=== PATIENT | male | born 1995 | race American Indian/Alaskan Native ===

== ENCOUNTER 2017-04-25 12:57 | Emergency (ER) | payer MEDICAID ==
[2017-04-25] MEDS ORDERED: NACL 0.9% 1000 ML 2,000 ML IV ONE (13:50)
[2017-04-25 14:05] LABS: Alanine Aminotransferase 24 units/L (7-56); Albumin 4.6 g/dL (3.9-5); BUN/Creatinine Ratio 4; Basophils % (Auto) 0.2 % (0.0-1.8); Blood Urea Nitrogen 4 mg/dL (9-20); Calcium 9.6 mg/dL (8.4-10.2); Eosinophils # (Auto) 0.1 K/mm3 (0.0-0.4); Eosinophils % (Auto) 1.1 % (0.0-4.3); Hematocrit 49.2 % (35.5-45.6); Hemoglobin 15.8 gm/dl (11.8-15.2); Hemolysis Index 35; Lymphocytes # (Auto) 1.3 K/mm3 (1.2-5.4); Lymphocytes % (Auto) 10.7 % (13.4-35.0); Mean Corpuscular HGB Conc 32 % (32-34); Mean Corpuscular Hemoglobin 29 pg (28-32); Mean Corpuscular Volume 91 fl (84-94); Monocytes # (Auto) 1.7 K/mm3 (0.0-0.8); Monocytes % (Auto) 13.5 % (0.0-7.3); Platelet Count 259 K/mm3 (140-440); Red Blood Count 5.38 M/mm3 (3.65-5.03); Red Cell Distribution Width 15.3 % (13.2-15.2)
--- NOTE | 2017-04-25 14:29 | Cat Scan Report ---
CT FACIAL BONES WITHOUT CONTRAST: HISTORY: Facial trauma. TECHNIQUE: Helical CT images with sagittal and coronal CT reformations. FINDINGS: All paranasal sinuses are clear. No sinus wall fracture, fluid level or opacification. The orbital cavities are symmetric and intact. The mandible is intact. The skull base and upper cervical spine demonstrate no evidence for acute injury. IMPRESSION: Unremarkable CT of the facial bones.
--- NOTE | 2017-04-25 14:29 | Cat Scan Report ---
CT HEAD WITHOUT CONTRAST: HISTORY: Headache. TECHNIQUE: Sequential 2.5mm CT images. COMPARISON: none. FINDINGS: Cerebral Parenchyma: Within normal limits. Cerebellum: Within normal limits. Brainstem: Within normal limits. Ventricles: Normal. Sella: Normal. Extra-axial spaces: Normal. Basal Cisterns: Normal. Intracranial Hemorrhage: None. Midline Shift: None. Calvarium: Normal. Sinuses: Normal. Mastoid Air Cells: Normal. Visualized Orbits: Normal. IMPRESSION: Cranial CT scan within normal limits.
[2017-04-25] MEDS ORDERED: TYLENOL PO ONE (15:15)
--- NOTE | 2017-04-25 15:22 | Emergency Department Report ---
HPI - General Chief Complaint: Seizure Time Seen by Provider: 04/25/17 13:48 - HPI HPI: The patient is a 22-year-old male who presents for evaluation of headache and facial pain status post fall one day ago. He states that he is concerned that he experienced a first-time seizure one day ago, causing him to fall sustaining injuries to the head and face. He reports mild aching in quality frontal headache and nasal bridge pain since yesterday, exacerbated with movement and improved at rest. The patient denies fever, neck pain or neck stiffness, vision or hearing changes, smell or taste changes, paresthesias, facial drooping, slurred speech, seizure-like activity, urine or bowel incontinence or retention , or other focal neurological deficit. ED Past Medical Hx - Past Medical History Hx Psychiatric Treatment: Yes (SCHIZOAFFECTIVE DISORDER) - Surgical History Additional Surgical History: UNKNOWN - Social History Smoking Status: Unknown if ever smoked - Medications Home Medications: Home Medications Medication Instructions Recorded Confirmed Last Taken Type Acetaminophen [Tylenol] 1,000 mg PO Q6HR #20 tablet 04/25/17 Unknown Rx ED Review of Systems ROS: Stated complaint: POSS SEIZURE/SYNCOPE Other details as noted in HPI Constitutional: denies: fever ENT: denies: throat or neck pain Respiratory: denies: cough, shortness of breath Cardiovascular: denies: chest pain Endocrine: denies unexplained weight loss or gain Gastrointestinal: denies: abdominal pain, nausea Genitourinary: denies: dysuria Musculoskeletal: denies: leg swelling Skin: denies: rash Neurological: reports: headache Hematological/Lymphatic: denies: easy bleeding or easy bruising Psych: denies sadness or hopelessness Physical Exam - Physical Exam Vital Signs: Vital Signs 04/25/17 13:02 Temperature 99.8 F H Pulse Rate 109 H Respiratory 18 Rate Blood Pressure 114/92 O2 Sat by Pulse 98 Oximetry Physical Exam: General: well-nourished, well-developed, no acute distress Head: Normocephalic, small superficial abrasions presents to the bridge of the nose Eyes: normal sclera, PERRL, EOM intact ENT: Mucous membranes are pale and dry Neck: No neck stiffness, no cervical adenopathy Respiratory: Breath sounds equal bilaterally, no wheezing, rales, or rhonchi Cardio: S1 and S2 present, no murmurs, rubs, gallops, capillary refill is delayed Abdomen: Normoactive bowel sounds, soft abdomen, no rigidity, no guarding or rebound tenderness Musc: No pitting edema Skin: No rash Neuro: alert oriented x4, normal cognition, speech normal, no facial drooping, no uvula or tongue deviation on protrusion, no deficit with rotation of neck or shoulder shrug, no obvious gross motor deficit in the upper or lower extremities with flexion or extension at the shoulder, elbow, wrist, hip, knee, or ankle bilaterally, no obvious gross sensation deficit to crude touch or 2 pt discrimination, 2+ symmetric reflexes on DTR testing, no coordination deficit with elmjgm-sd-[id number] or dlss-ns-fcaj testing, romberg negative, patient able to to ambulate without abnormal gait Psych: Normal affect ED Course Vital Signs 04/25/17 13:02 Temperature 99.8 F H Pulse Rate 109 H Respiratory 18 Rate Blood Pressure 114/92 O2 Sat by Pulse 98 Oximetry ED Medical Decision Making - Lab Data Result diagrams: 04/25/17 13:27 04/25/17 13:27 - Medical Decision Making The patient was seen and examined by myself. The patient is placed on a quality assurance monitor body and continuous pulse ox. On initial evaluation, the patient was found to be in no distress. Evaluation orders were placed. The patient is given 2 L normal saline fluid bolus for treatment of his dehydration. Lab results are grossly unremarkable. CT scan of the facial bones is negative for significant facial bone fractures. CT scan the head is negative for acute intracranial disease process. The patient was reevaluated and reported that his pain was markedly improved. The patient is stable for discharge with outpatient follow-up. The patient is given follow-up and return instructions. The patient expressed understanding and agreed with the plan. The patient is discharged in stable condition. Critical care attestation.: If time is entered above; I have spent that time in minutes in the direct care of this critically ill patient, excluding procedure time. ED Disposition Clinical Impression: Dehydration, Acute post-traumatic headache, not intractable Nose abrasion Qualifiers: Encounter type: initial encounter Qualified Code(s): S00.31XA - Abrasion of nose, initial encounter Disposition: -01 TO HOME OR SELFCARE Is pt being admited?: No Does the pt Need Aspirin: No Condition: Stable Instructions: Dehydration (ED), Acute Headache (ED), Abrasion (ED) Prescriptions: Acetaminophen [Tylenol] 1,000 mg PO Q6HR #20 tablet Referrals: PRIMARY CARE, [Primary Care Provider] - 3-5 Days Time of Disposition: 15:20
[2017-04-25] MEDS ORDERED: NACL 0.9% 1000 ML 1,000 ML IV ONE ×2 (17:01→18:14)
[2017-04-25] MEDS ORDERED: ATIVAN IV ONE (18:15)
[2017-04-25] MEDS ORDERED: NORMODYNE IV ONE (18:16)
[2017-04-25 20:01] VITALS: BP 136/84
== END 2017-04-25 23:48 | disposition home or self-care (01) ==
LOC: ED 12:57
DX: S00.31XA Abrasion of nose, initial encounter (principal); G44.319 Acute post-traumatic headache, not intractable; E86.0 Dehydration; F20.9 Schizophrenia, unspecified; W17.89XA Other fall from one level to another, initial encounter; Y93.89 Activity, other specified; Y92.89 Other specified places as the place of occurrence of the external cause; Y99.8 Other external cause status
CPT/HCPCS: 36415; 70450; 70486; 80053; 84443; 85025; 96361; 96374; 99285; G0480; J2060; J7030; 80320

== ENCOUNTER 2018-11-28 22:02 | Emergency (ER) | payer MEDICAID ==
[2018-11-28 23:48] LABS: Color,Urine Yellow (Yellow)
[2018-11-28 23:49] LABS: Bilirubin,Urine NEG (Negative); Blood,Urine NEG (Negative); Mucus,Urine FEW /HPF; Protein,Urine <15 mg/dL mg/dL (Negative); Urobilinogen,Urine < 2.0 mg/dL (<2.0)
[2018-11-28 23:56] LABS: Amphetamine Screen,Urine PRESUMPTIVE NEGATIVE; Benzodiazepines Screen,Urine PRESUMPTIVE NEGATIVE; Cannabinoid Screen,Urine PRESUMPTIVE NEGATIVE; Cocaine Screen,Urine PRESUMPTIVE NEGATIVE; Methadone Screen,Urine PRESUMPTIVE NEGATIVE; Opiate Screen,Urine PRESUMPTIVE NEGATIVE
[2018-11-28 23:57] LABS: Basophils % (Auto) 0.2 % (0.0-1.8); Eosinophils # (Auto) 0.2 K/mm3 (0.0-0.4); Eosinophils % (Auto) 1.7 % (0.0-4.3); Hematocrit 44.9 % (35.5-45.6); Hemoglobin 14.2 gm/dl (11.8-15.2); Lymphocytes # (Auto) 1.9 K/mm3 (1.2-5.4); Mean Corpuscular HGB Conc 32 % (32-34); Mean Corpuscular Volume 92 fl (84-94); Monocytes # (Auto) 0.8 K/mm3 (0.0-0.8); Monocytes % (Auto) 7.2 % (0.0-7.3); Platelet Count 255 K/mm3 (140-440); Red Cell Distribution Width 15.9 % (13.2-15.2)
[2018-11-29 00:16] LABS: BUN/Creatinine Ratio 7; Blood Urea Nitrogen 8 mg/dL (9-20); Calcium 9.7 mg/dL (8.4-10.2); Hemolysis Index 12
--- NOTE | 2018-11-29 09:50 | Emergency Department Report ---
HPI - General Chief Complaint: Psych Time Seen by Provider: 11/29/18 09:20 - HPI HPI: 23-year-old male presents to the emergency department for a mental health evaluation. The patient says that he has been hearing voices for "a while" and is hoping to have his medications adjusted. He denies receiving any commands from these hallucinations. He denies any suicidal or homicidal ideations. The patient says that he got here via police but says he is unsure who called for the police and says that they were "already outside." I spoke to his mother, Leonarda Swenson, who says that the patient has been having multiple recent episodes or exacerbations of his schizoaffective disorder. She says that he is mentioned some suicidal ideations a few different times in the past 24 hours. She also says that he had some type of a verbal altercation with another customer at the [employer] yesterday. He is compliant with his medications. However the medications have been changed multiple times over the past few months. He was previously on Invega but this was stopped 2 months ago and he was placed on Arixtra, but this was then stopped about one month ago. He follows with Dr. Arnoldo Spring at [facility] ED Past Medical Hx - Past Medical History Previous Medical History?: Yes Hx Psychiatric Treatment: Yes (SCHIZOAFFECTIVE DISORDER) - Surgical History Past Surgical History?: Yes Additional Surgical History: UNKNOWN - Social History Smoking Status: Current Every Day Smoker Substance Use Type: None - Medications Home Medications: Home Medications Medication Instructions Recorded Confirmed Last Taken Type Benztropine Mesylate 1 mg PO BID 11/29/18 11/29/18 11/28/18 History Guanfacine HCl [Guanfacine HCl ER] 2 mg PO DAILY 11/29/18 11/29/18 11/28/18 History [place] Carbonate ER [Lithobid ER] 450 mg PO BID 11/29/18 11/29/18 11/28/18 History Trazodone HCl 150 mg PO QHS 11/29/18 11/29/18 11/28/18 History clonazePAM [Klonopin] 1 mg PO BID 11/29/18 11/29/18 11/28/18 History fluPHENAZine HCl [Prolixin] 5 mg PO DAILY 11/29/18 11/29/1819 History at noon fluPHENAZine HCl [fluPHENAZine] 10 mg PO BID 11/29/18 11/29/18 11/28/18 History AM&QHS ED Review of Systems ROS: Stated complaint: HEARING VOICES Other details as noted in HPI Comment: All other systems reviewed and negative Constitutional: denies: chills, fever Eyes: denies: eye pain, vision change ENT: denies: ear pain, throat pain Respiratory: denies: cough, shortness of breath Cardiovascular: denies: chest pain, palpitations Gastrointestinal: denies: abdominal pain, vomiting Genitourinary: denies: dysuria, discharge Musculoskeletal: denies: back pain, arthralgia Skin: denies: rash, lesions Neurological: denies: headache, weakness Psychiatric: auditory hallucinations, visual hallucinations Physical Exam - Physical Exam Vital Signs: Vital Signs 11/28/18 11/28/18 22:28 23:27 Temperature 98.8 F 98.8 F Pulse Rate 103 H 111 H Respiratory 20 18 Rate Blood Pressure 150/87 150/87 O2 Sat by Pulse 97 97 Oximetry Physical Exam: GENERAL: The patient is well-developed well-nourished. HENT: Normocephalic. Atraumatic. Patient has moist mucous membranes. EYES: Extraocular motions are intact. . NECK: Supple. Trachea is midline. CHEST/LUNGS: Clear to auscultation. There is no respiratory distress noted. HEART/CARDIOVASCULAR: Regular. There is no tachycardia. There is no murmur. ABDOMEN: Abdomen is soft, nontender. Patient has normal bowel sounds. There is no abdominal distention. SKIN: Skin is warm and dry. NEURO: The patient is awake, alert, and oriented. The patient is cooperative. Normal speech. MUSCULOSKELETAL: There is no tenderness or deformity. There is no evidence of acute injury. ED Course Vital Signs 11/28/18 11/28/18 22:28 23:27 Temperature 98.8 F 98.8 F Pulse Rate 103 H 111 H Respiratory 20 18 Rate Blood Pressure 150/87 150/87 O2 Sat by Pulse 97 97 Oximetry ED Medical Decision Making - Lab Data Result diagrams: 11/28/18 23:32 11/28/18 23:32 - Medical Decision Making This patient presents to the emergency department for a mental health evaluation and is essentially just asking for someone to change or titrate his medications. At first, the patient denies any suicidal or homicidal ideations and just admits to some auditory hallucinations without any commands. However the patient is unable to explain exactly how he got to the emergency department and says that he came by police at that he did not call them and they were just outside of his home. However the patient has been here since late last night, early this morning. The patient says that his mother is the person who has information regarding his medications and psychiatric history and the name of his psychiatrist. For this reason I gave her a call. His mother started saying that the patient has had multiple violent outburst at home and has been punching the castañeda, making holes. She says that he has told him that he wants to harm himself multiple times within the last 24 hours. She also says that there was a verbal altercation between the patient and someone else at the [facility] yesterday. For these reasons, the patient has been made a 1013, and will be seen by the psychiatric team for further disposition. - Differential Diagnosis schizophrenia, schizoaffective, bipolar disorder, substance abuse Critical Care Time: No Critical care attestation.: If time is entered above; I have spent that time in minutes in the direct care of this critically ill patient, excluding procedure time. ED Disposition Clinical Impression: Schizoaffective disorder Qualifiers: Schizoaffective disorder type: unspecified Qualified Code(s): F25.9 - Schizoaffective disorder, unspecified Psychosis Qualifiers: Psychosis type: unspecified psychosis type Qualified Code(s): F29 - Unspecified psychosis not due to a substance or known physiological condition Disposition: DC/TX-65 PSY HOSP/PSY UNIT Is pt being admited?: No Condition: Stable Referrals: PRIMARY CARE, [Primary Care Provider] - 3-5 Days Time of Disposition: 11:44
[2018-11-29] MEDS ORDERED: NON-FORMULARY (Clonazepam [Klonopin] 1 MG) PO SCH (22:00)
[2018-11-29] MEDS ORDERED: FLUPHENAZINE HCL 10 MG PO SCH (22:00)
[2018-11-29] MEDS ORDERED: NON-FORMULARY (Trazodone Hcl [Trazodone Hcl] 150 MG) PO SCH (22:00)
[2018-11-29] MEDS ORDERED: DESYREL PO SCH (22:00)
[2018-11-29] MEDS ORDERED: LITHOBID ER PO SCH (22:00)
[2018-11-29] MEDS ORDERED: PROLIXIN HCL PO SCH (22:00)
[2018-11-29] MEDS ORDERED: COGENTIN PO SCH (22:00)
[2018-11-30 07:51] VITALS: BP 134/81
[2018-11-30] MEDS ORDERED: GUANFACINE HCL 2 MG PO SCH (10:00)
[2018-11-30] MEDS ORDERED: PROLIXIN HCL PO SCH (12:00)
== END 2018-11-30 12:06 ==
LOC: EEVIPCON 22:02 → ED 22:02
DX: F25.9 Schizoaffective disorder, unspecified (principal); F29 Unspecified psychosis not due to a substance or known physiological condition; F17.200 Nicotine dependence, unspecified, uncomplicated
CPT/HCPCS: 36415; 80048; 80307; 80320; 81001; 85025; G0480

== ENCOUNTER 2020-09-27 16:08 | Emergency (ER) | payer MEDICARE ==
[2020-09-27 17:44] LABS: Basophils % (Auto) 0.3 % (0.0-1.8); Eosinophils # (Auto) 0.3 K/mm3 (0.0-0.4); Eosinophils % (Auto) 3.6 % (0.0-4.3); Hematocrit 40.1 % (35.5-45.6); Hemoglobin 13.4 gm/dl (11.8-15.2); Lymphocytes # (Auto) 2.9 K/mm3 (1.2-5.4); Lymphocytes % (Auto) 30.2 % (13.4-35.0); Mean Corpuscular HGB Conc 34 % (32-34); Mean Corpuscular Volume 93 fl (84-94); Monocytes % (Auto) 10.6 % (0.0-7.3); Platelet Count 166 K/mm3 (140-440); Red Cell Distribution Width 15.4 % (13.2-15.2)
--- NOTE | 2020-09-27 17:49 | Emergency Department Report ---
HPI - General Chief Complaint: Psych Time Seen by Provider: 09/27/20 16:34 - HPI HPI: This is a 25-year-old -[place] male presents to the emergency department for a mental health evaluation. Patient has a history of schizophrenia and bipolar disorder. Patient says that he is on medication and has been compliant with taking it. The patient brought himself in to be seen secondary to increased auditory hallucinations. The patient says that they are command hallucinations and they are telling him to "do stuff." He would not specify exactly what the hallucinations are telling him to do, but he denies any suicidal or homicidal ideations. Patient denies any illicit drug use or any current alcohol abuse or dependence. ED Past Medical Hx - Past Medical History Hx Psychiatric Treatment: Yes (SCHIZOAFFECTIVE DISORDER) - Surgical History Past Surgical History?: No Additional Surgical History: UNKNOWN - Social History Smoking Status: Current Every Day Smoker - Medications Home Medications: Home Medications Medication Instructions Recorded Confirmed Last Taken Type Benztropine Mesylate 1 mg PO BID 11/29/18 09/28/20 11/28/18 History Guanfacine HCl [Guanfacine HCl ER] 2 mg PO DAILY 11/29/18 09/28/20 11/28/18 History [place] Carbonate ER [Lithobid ER] 450 mg PO BID 11/29/18 09/28/20 11/28/18 History Trazodone HCl 150 mg PO QHS 11/29/18 09/28/20 11/28/18 History clonazePAM [Klonopin] 1 mg PO BID 11/29/18 09/28/20 11/28/18 History fluPHENAZine HCl [Prolixin] 5 mg PO DAILY 11/29/18 09/28/20 11/28/18 History at noon fluPHENAZine HCl [fluPHENAZine] 10 mg PO BID 11/29/18 09/28/20 11/28/18 History AM&QHS cloZAPine [Clozapine] 50 mg PO BID 09/28/20 09/28/20 Unknown History ED Review of Systems ROS: Stated complaint: MH EVAL Other details as noted in HPI Comment: All other systems reviewed and negative Constitutional: denies: chills, fever Eyes: denies: eye pain, vision change ENT: denies: ear pain, throat pain Respiratory: denies: cough, shortness of breath Cardiovascular: denies: chest pain, palpitations Gastrointestinal: denies: abdominal pain, vomiting Genitourinary: denies: dysuria, discharge Musculoskeletal: denies: back pain, arthralgia Skin: denies: rash, lesions Neurological: denies: headache, weakness Psychiatric: auditory hallucinations. denies: homicidal thoughts, suicidal thoughts Physical Exam - Physical Exam Vital Signs: Vital Signs 09/27/20 16:38 Temperature 98.0 F Pulse Rate 90 Respiratory 20 Rate Blood Pressure 125/76 [Left] O2 Sat by Pulse 99 Oximetry Physical Exam: GENERAL: The patient is well-developed well-nourished. HENT: Normocephalic. Atraumatic. Patient has moist mucous membranes. EYES: Extraocular motions are intact. NECK: Supple. Trachea is midline. CHEST/LUNGS: Clear to auscultation. There is no respiratory distress noted. HEART/CARDIOVASCULAR: Regular. There is no tachycardia. There is no murmur. ABDOMEN: Abdomen is soft, nontender. Patient has normal bowel sounds. SKIN: Skin is warm and dry. NEURO: The patient is awake, alert, and cooperative. The patient has no focal neurologic deficits. Normal speech. MUSCULOSKELETAL: There is no tenderness or deformity. There is no limitation range of motion. ED Course Vital Signs 09/27/20 16:38 Temperature 98.0 F Pulse Rate 90 Respiratory 20 Rate Blood Pressure 125/76 [Left] O2 Sat by Pulse 99 Oximetry ED Medical Decision Making - Lab Data Result diagrams: 09/27/20 17:27 09/27/20 17:27 Lab Results 09/27/20 09/27/20 09/27/20 Range/Units 17:27 17:27 17:27 WBC 9.5 (4.5-11.0) K/mm3 RBC 4.30 (3.65-5.03) M/mm3 Hgb 13.4 (11.8-15.2) gm/dl Hct 40.1 (35.5-45.6) % MCV 93 (84-94) fl MCH 31 (28-32) pg MCHC 34 (32-34) % RDW 15.4 H (13.2-15.2) % Plt Count 166 (140-440) K/mm3 Lymph % (Auto) 30.2 (13.4-35.0) % [place] % (Auto) 10.6 H (0.0-7.3) % Eos % (Auto) 3.6 (0.0-4.3) % Baso % (Auto) 0.3 (0.0-1.8) % Lymph # (Auto) 2.9 (1.2-5.4) K/mm3 [place] # (Auto) 1.0 H (0.0-0.8) K/mm3 Eos # (Auto) 0.3 (0.0-0.4) K/mm3 Baso # (Auto) 0.0 (0.0-0.1) K/mm3 Seg Neutrophils % 55.3 (40.0-70.0) % Seg Neutrophils # 5.3 (1.8-7.7) K/mm3 Sodium 140 (137-145) mmol/L Potassium 4.2 (3.6-5.0) mmol/L Chloride 104.6 (98-107) mmol/L Carbon Dioxide 29 (22-30) mmol/L Anion Gap 11 mmol/L BUN 9 (9-20) mg/dL Creatinine 1.0 (0.8-1.3) mg/dL Estimated GFR > 60 ml/min BUN/Creatinine Ratio 9 % Glucose 79 (75-100) mg/dL Calcium 9.3 (8.4-10.2) mg/dL Plasma/Serum Alcohol < 0.01 (0-0.07) % - Medical Decision Making This patient presents for a mental health evaluation. He complains of auditory hallucinations that are telling him to "do stuff." However this is very nonspecific and the patient denies any suicidal or homicidal ideations. For this reason the patient was made an ED hold but not a 1013. However, after the patient was seen by the mental health pediatrics physician, collateral information tells us that he also has a diagnosis of autism. He would not be a 1013 anyways. The mobile crisis unit has been contacted to come out and assess the patient. Labs thus far have been unremarkable including CBC, metabolic panel and blood a lcohol level. We are still waiting for a urine sample for urinalysis and UDS. We will continue to monitor this patient until disposition has been figured out by the mobile crisis unit in conjunction with our psychiatric team. Vital signs thus far have been reassuring including being afebrile. Critical Care Time: No Critical care attestation.: If time is entered above; I have spent that time in minutes in the direct care of this critically ill patient, excluding procedure time. ED Disposition Clinical Impression: Schizoaffective disorder, Autism Disposition: DC-01 TO HOME OR SELFCARE Is pt being admited?: No Condition: Fair Instructions: Supporting Someone With Autism Spectrum Disorder, Managing Schizoaffective Disorder, Schizoaffective Disorder Additional Instructions: [facility] [address], [place] [address] Professional and Agency Contacts To help [facility] Cr[facility](16/10) [place] Crisis Line: Suicide Prevention Line: Crisis Text Line: Text START to [phone] Emergency: 911 Outpatient COMMUNITY Behavioral Health Resources: KAUSHIK: [facility] [address] [place], [place] [address] [facility] [address] [place] [address] [facility] - [address] [place] [address] Sunday thru Sunday - 8am - 5pm [facility] Address: [address] [place] [address] [place]: [facility] Address: [address] [place] [address] Sunday thru Sunday- 7am-2pm [facility] Address: [address] [place] [address] Sunday thru Sunday: 8:30AM-5PM OUTPATIENT MENTAL HEALTH RESOURCES [facility], [address] [place] [address] [facility] Patrice Ewing MD: [address] [place], [place] [id number] [facility]: [address] [place], [place] [id number] [place] [address] [phone] [facility]: [address] [place] [address] [facility]: [address] [place] [id number] [facility]: [address] [place] [address] Giovanni Rodríguez MD: [address] [facility] [address] [facility]: [address] [place], [place] [id number] [phone] [place] CRISIS AND ACCESS LINE: * Referrals: PRIMARY MD OSVALDO [Primary Care Provider] - 3-5 Days SARAH GÓMEZ MD [Staff Physician] - 3-5 Days Time of Disposition: 19:48
[2020-09-27 17:56] LABS: BUN/Creatinine Ratio 9; Blood Urea Nitrogen 9 mg/dL (9-20); Calcium 9.3 mg/dL (8.4-10.2); Hemolysis Index 16
[2020-09-28 05:52] LABS: Bilirubin,Urine NEG (Negative); Blood,Urine NEG (Negative); Color,Urine Straw (Yellow); Protein,Urine <15 mg/dL mg/dL (Negative); Urobilinogen,Urine < 2.0 mg/dL (<2.0)
[2020-09-28 06:00] LABS: Amphetamine Screen,Urine Negative; Benzodiazepines Screen,Urine Negative; Cannabinoid Screen,Urine Negative; Cocaine Screen,Urine Negative; Methadone Screen,Urine Negative; Opiate Screen,Urine Negative
[2020-09-28 08:43] VITALS: BP 120/73
--- NOTE | 2020-09-28 10:00 | Emergency Department Report ---
Blank Doc - Documentation Documentation: There are no acute events overnight. The patient is awaiting mental health di sposition. Patient has no questions upon review.
[2020-09-28] MEDS ORDERED: FLUPHENAZINE HCL 10 MG PO SCH (10:30)
[2020-09-28] MEDS ORDERED: NON-FORMULARY EACH (Clonazepam [Klonopin] 1 MG Tablet) PO SCH (10:30)
[2020-09-28] MEDS ORDERED: GUANFACINE HCL 2 MG PO SCH (10:30)
--- NOTE | 2020-09-28 10:46 | Consultation ---
History of Present Illness - Reason for Consult Consult date: 09/28/20 Reason for consult: aggression - History of Present Psychiatric Illness Per ER Note: This is a 25-year-old -Vietnamese male presents to the emergency department for a mental health evaluation. Patient has a history of schizophrenia and bipolar disorder. Patient says that he is on medication and has been compliant with taking it. The patient brought himself in to be seen secondary to increased auditory hallucinations. The patient says that they are command hallucinations and they are telling him to "do stuff." He would not specify exactly what the hallucinations are telling him to do, but he denies any suicidal or homicidal ideations. Patient denies any illicit drug use or any current alcohol abuse or dependence. The patient was seen today, he is calm, cooperative and polite. He is a/o x 3. The patient says he's feeling "good." He says he came to the ER because he "was having hallucinations and my heart was beating fast." The patient says "but I'm good now. I feel good." He says "the voices have stopped. I don't hear them." He denies SI/HI. The patient says he has a history of bipolar, schizophrenia and anxiety. PAST PSYCHIATRIC HISTORY: Diagnoses: Bipolar, anxiety, schizophrenia Suicide attempts or Self-harm behavior: Denies Prior psychiatric hospitalizations: yes Substance Abuse history: Denies Previous psychiatric medications tried: yes Outpatient treatment: yes PAST MEDICAL HISTORY: None reported or document Family Psychiatric History: None reported or documented SOCIAL HISTORY Marital Status: Single Living Arrangements: senior living Employment Status: disabled Access to guns/weapons: denies Education: History of Abuse: denies Legal History: denies REVIEW OF SYSTEMS Constitutional: Negative for weight loss ENT: Negative for stridor Respiratory: Negative for cough or hemoptysis All other systems reviewed and are negative MENTAL STATUS EXAMINATION General Appearance and Behavior: Age appropriate, wearing appropriate clothes, cooperative polite with questioning, good eye contact, calm and cooperative Cooperation: cooperative Psychomotor Behavior: Psychomotor normal Mood: "good" Affect and affective range: congruent with stated mood, Euthymic Thought Process: goal directed Thought Content: optimism Speech: Normal volume, Regular rate and rhythm Suicidal Ideation: Denies Homicidal Ideation: Denies hallucination: Denies Delusions: None elicited Impulse Control: Intact Insight and Judgment: Limited Memory: Intact Attention: attentive, engaging Orientation: Alert and oriented Diagnoses: Schizophrenia Treatment Plan Continue home meds PSYCHOTHERAPY: Supportive psychotherapy provided MEDICAL: Per primary team DELIRIUM PRECAUTIONS: Please re-orient patient frequently, keep lights on during the day, and minimize benzodiazepines and opiates as these medications could worsen patient's confusion. 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 The coat repair inspector is to give him outpatient psych resources He is to follow up in 7 to 14 days with outpatient psych Will sign off Thank you for the consult. Please contact with any questions and/or concerns. Case staffed with Dr. Owens Medications and Allergies Allergies Allergy/AdvReac Type Severity Reaction Status Date / Time No Known Allergies Allergy Unverified 04/25/17 13:02 Home Medications Medication Instructions Recorded Confirmed Last Taken Type Benztropine Mesylate 1 mg PO BID 11/29/18 11/29/18 11/28/18 History Guanfacine HCl [Guanfacine HCl ER] 2 mg PO DAILY 11/29/18 11/29/18 11/28/18 History [place] Carbonate ER [Lithobid ER] 450 mg PO BID 11/29/18 11/29/18 11/28/18 History Trazodone HCl 150 mg PO QHS 11/29/18 11/29/18 11/28/18 History clonazePAM [Klonopin] 1 mg PO BID 11/29/18 11/29/18 11/28/18 History fluPHENAZine HCl [Prolixin] 5 mg PO DAILY 11/29/18 11/29/18 11/28/18 History at noon fluPHENAZine HCl [fluPHENAZine] 10 mg PO BID 11/29/18 11/29/18 11/28/18 History AM&QHS Active Meds: Active Medications Benztropine Mesylate (Benztropine 1 Mg Tab) 1 mg PO BID ALLISON Clonazepam (Clonazepam 0.5 Mg Tab) 1 mg PO BID ALLISON Fluphenazine HCl (Fluphenazine Hcl 5 Mg Tab) 10 mg PO BID ALLISON [place] Carbonate ([place] Carbonate Er 450 Mg Tab) 450 mg PO BID ALLISON Miscellaneous Medication (Guanfacine Hcl [Guanfacine Hcl Er]) 2 mg PO DAILY ALLISON Trazodone HCl (Trazodone 100 Mg Tab) 100 mg PO QHS ALLISON Trazodone HCl (Trazodone 50 Mg Tab) 50 mg PO QHS [facility] Mental Status Exam - Vital signs Last Vital Signs Temp 97.8 F 09/28/20 08:42 Pulse 90 09/28/20 08:42 Resp 20 09/28/20 08:42 BP 120/73 09/28/20 08:42 Pulse Ox 100 09/28/20 08:42 Results Result Diagrams: 09/27/20 17:27 09/27/20 17:27 Abnormal lab results 09/27/20 Range/Units 17:27 RDW 15.4 H (13.2-15.2) % [place] % (Auto) 10.6 H (0.0-7.3) % [place] # (Auto) 1.0 H (0.0-0.8) K/mm3 All other labs normal.
[2020-09-28] MEDS ORDERED: clonazePAM 0.5 MG TAB PO SCH (11:00)
[2020-09-28] MEDS ORDERED: LITHIUM CARBONATE ER 450 MG TAB PO SCH (11:00)
[2020-09-28] MEDS ORDERED: BENZTROPINE 1 MG TAB PO SCH (11:00)
[2020-09-28] MEDS ORDERED: NON-FORMULARY EACH (Trazodone Hcl [Trazodone Hcl] 150 MG Tablet) PO SCH (22:00)
[2020-09-28] MEDS ORDERED: traZODone 100 MG TAB PO SCH (22:00)
[2020-09-28] MEDS ORDERED: traZODone 50 MG TAB PO SCH (22:00)
== END 2020-09-28 13:58 | disposition home or self-care (01) ==
LOC: ED 16:08
DX: F25.9 Schizoaffective disorder, unspecified (principal); F84.0 Autistic disorder; F17.200 Nicotine dependence, unspecified, uncomplicated; Z20.822 Contact with and (suspected) exposure to COVID-19; Z79.899 Other long term (current) drug therapy
CPT/HCPCS: 36415; 80048; 80307; 81001; 85025; 99284; U0003; 80320; G0480

== ENCOUNTER 2020-11-03 04:29 | Emergency (ER) | payer MEDICARE ==
--- NOTE | 2020-11-03 06:42 | Emergency Department Report ---
HPI - General Chief Complaint: Psych Time Seen by Provider: 11/03/20 06:03 - HPI HPI: This is a 25-year-old -Guyanese male who presents to the emergency department from his personal shelter for a mental health evaluation. The patient has a history of schizoaffective disorder, bipolar disorder, and autism or developmental delay. Through triage the patient was complaining of auditory and/or command hallucinations telling him to hurt himself. At the time of my examination the patient does admit that he is thinking about "bad stuff", and that he has having both auditory and visual hallucinations, but he is not able to describe these hallucinations and currently denies suicidal or homicidal ideations. I saw this patient for similar symptoms about 1 month ago. ED Past Medical Hx - Past Medical History Previous Medical History?: Yes Hx Psychiatric Treatment: Yes (SCHIZOAFFECTIVE DISORDER) - Surgical History Additional Surgical History: UNKNOWN - Social History Smoking Status: Current Every Day Smoker Substance Use Type: None - Medications Home Medications: Home Medications Medication Instructions Recorded Confirmed Last Taken Type Benztropine Mesylate 1 mg PO BID 11/29/18 11/03/20 11/28/18 History [place] Carbonate ER [Lithobid ER] 450 mg PO BID 11/29/18 11/03/20 11/28/18 History Trazodone HCl 150 mg PO QHS 11/29/18 11/03/20 11/28/18 History clonazePAM [Klonopin] 1 mg PO BID 11/29/18 11/03/20 11/28/18 History fluPHENAZine HCl [Prolixin] 5 mg PO DAILY 11/29/18 11/03/20 11/28/18 History at noon fluPHENAZine HCl [fluPHENAZine] 10 mg PO BID 11/29/18 11/03/20 11/28/18 History AM&QHS cloZAPine [Clozapine] 50 mg PO BID 09/28/20 11/03/20 Unknown History ED Review of Systems ROS: Stated complaint: MH/HALLUCINATION Other details as noted in HPI Comment: All other systems reviewed and negative Constitutional: denies: chills, fever Respiratory: denies: cough, shortness of breath Cardiovascular: denies: chest pain, palpitations Gastrointestinal: denies: abdominal pain, vomiting Musculoskeletal: denies: back pain, arthralgia Neurological: denies: headache, weakness Psychiatric: auditory hallucinations, visual hallucinations Physical Exam - Physical Exam Vital Signs: Vital Signs 11/03/20 11/03/20 04:57 05:02 Temperature 98.6 F Pulse Rate 104 H Respiratory 16 Rate Blood Pressure 120/78 O2 Sat by Pulse 97 97 Oximetry Physical Exam: GENERAL: The patient is well-developed well-nourished. HENT: Normocephalic. Atraumatic. Patient has moist mucous membranes. EYES: Extraocular motions are intact. NECK: Supple. Trachea is midline. CHEST/LUNGS: Clear to auscultation. There is no respiratory distress noted. HEART/CARDIOVASCULAR: Regular. There is no tachycardia. There is no murmur. ABDOMEN: Abdomen is soft, nontender. Patient has normal bowel sounds. SKIN: Skin is warm and dry. NEURO: The patient is awake, alert, and oriented. The patient is cooperative. Normal speech. MUSCULOSKELETAL: There is no tenderness or deformity. There is no limitation range of motion. ED Course Vital Signs 11/03/20 11/03/20 04:57 05:02 Temperature 98.6 F Pulse Rate 104 H Respiratory 16 Rate Blood Pressure 120/78 O2 Sat by Pulse 97 97 Oximetry ED Medical Decision Making - Lab Data Result diagrams: 11/03/20 07:32 11/03/20 07:32 Lab Results 11/03/20 11/03/20 11/03/20 Range/Units 07:32 07:32 07:32 WBC 8.8 (4.5-11.0) K/mm3 RBC 4.42 (3.65-5.03) M/mm3 Hgb 13.9 (11.8-15.2) gm/dl Hct 42.2 (35.5-45.6) % MCV 96 H (84-94) fl MCH 32 (28-32) pg MCHC 33 (32-34) % RDW 14.5 (13.2-15.2) % Plt Count 191 (140-440) K/mm3 Lymph % (Auto) 19.3 (13.4-35.0) % [place] % (Auto) 11.1 H (0.0-7.3) % Eos % (Auto) 2.0 (0.0-4.3) % Baso % (Auto) 0.3 (0.0-1.8) % Lymph # (Auto) 1.7 (1.2-5.4) K/mm3 [place] # (Auto) 1.0 H (0.0-0.8) K/mm3 Eos # (Auto) 0.2 (0.0-0.4) K/mm3 Baso # (Auto) 0.0 (0.0-0.1) K/mm3 Seg Neutrophils % 67.3 (40.0-70.0) % Seg Neutrophils # 5.9 (1.8-7.7) K/mm3 Sodium 142 (137-145) mmol/L Potassium 5.0 (3.6-5.0) mmol/L Chloride 106.6 (98-107) mmol/L Carbon Dioxide 26 (22-30) mmol/L Anion Gap 14 mmol/L BUN 11 (9-20) mg/dL Creatinine 1.0 (0.8-1.3) mg/dL Estimated GFR > 60 ml/min BUN/Creatinine Ratio 11 % Glucose 94 (75-100) mg/dL Calcium 9.1 (8.4-10.2) mg/dL Plasma/Serum Alcohol < 0.01 (0-0.07) % Coronavirus (PCR) (Negative) 11/03/20 Range/Units 08:30 WBC (4.5-11.0) K/mm3 RBC (3.65-5.03) M/mm3 Hgb (11.8-15.2) gm/dl Hct (35.5-45.6) % MCV (84-94) fl MCH (28-32) pg MCHC (32-34) % RDW (13.2-15.2) % Plt Count (140-440) K/mm3 Lymph % (Auto) (13.4-35.0) % [place] % (Auto) (0.0-7.3) % Eos % (Auto) (0.0-4.3) % Baso % (Auto) (0.0-1.8) % Lymph # (Auto) (1.2-5.4) K/mm3 [place] # (Auto) (0.0-0.8) K/mm3 Eos # (Auto) (0.0-0.4) K/mm3 Baso # (Auto) (0.0-0.1) K/mm3 Seg Neutrophils % (40.0-70.0) % Seg Neutrophils # (1.8-7.7) K/mm3 Sodium (137-145) mmol/L Potassium (3.6-5.0) mmol/L Chloride (98-107) mmol/L Carbon Dioxide (22-30) mmol/L Anion Gap mmol/L BUN (9-20) mg/dL Creatinine (0.8-1.3) mg/dL Estimated GFR ml/min BUN/Creatinine Ratio % Glucose (75-100) mg/dL Calcium (8.4-10.2) mg/dL Plasma/Serum Alcohol (0-0.07) % Coronavirus (PCR) Negative (Negative) - Medical Decision Making This patient presents to the emergency department for a mental health evaluation. Initially through triage he complained of command hallucinations causing suicidal ideations. During my initial examination the patient denies suicidal ideations. However, patient's caregiver gave collateral information including recent erratic behavior in which the patient was acting agitated and violent. Patient was seen by the psychiatric nurse practitioner, under Dr. Owens, and they have decided that the patient requires inpatient stabilization. Labs have been unremarkable thus far including CBC, metabolic panel and blood alcohol level. We do not yet have a urine sample for urinalysis and UDS. If there is a UTI, the patient will require antibiotics. For me, knowing the results of UDS does not change the treatment plan or disposition. Vital signs have been reassuring including being afebrile. The patient is medically cleared for psychiatric placement. Critical Care Time: No Critical care attestation.: If time is entered above; I have spent that time in minutes in the direct care of this critically ill patient, excluding procedure time. ED Disposition Clinical Impression: Schizoaffective disorder, Psychiatric disturbance Disposition: [id number]/TX-[id number] PSY HOSP/PSY UNIT Is pt being admited?: No Condition: Stable Time of Disposition: 15:22
[2020-11-03 08:04] LABS: Red Blood Count 4.42 M/mm3 (3.65-5.03)
[2020-11-03 08:05] LABS: Basophils % (Auto) 0.3 % (0.0-1.8); Eosinophils # (Auto) 0.2 K/mm3 (0.0-0.4); Hematocrit 42.2 % (35.5-45.6); Hemoglobin 13.9 gm/dl (11.8-15.2); Lymphocytes # (Auto) 1.7 K/mm3 (1.2-5.4); Lymphocytes % (Auto) 19.3 % (13.4-35.0); Mean Corpuscular HGB Conc 33 % (32-34); Mean Corpuscular Volume 96 fl (84-94); Monocytes % (Auto) 11.1 % (0.0-7.3); Platelet Count 191 K/mm3 (140-440); Red Cell Distribution Width 14.5 % (13.2-15.2)
[2020-11-03 08:17] LABS: BUN/Creatinine Ratio 11; Blood Urea Nitrogen 11 mg/dL (9-20); Calcium 9.1 mg/dL (8.4-10.2); Hemolysis Index 9
[2020-11-03 09:12] VITALS: BP 112/67
--- NOTE | 2020-11-03 12:47 | Consultation ---
History of Present Illness - Reason for Consult Consult date: 11/03/20 Reason for consult: mental health evaluation - History of Present Psychiatric Illness Per ED Note: This is a 25-year-old -[place] male who presents to the emergency department from his personal [place] [facility] for a mental health evaluation. The patient has a history of schizoaffective disorder, bipolar disorder, and autism or developmental delay. Through triage the patient was complaining of auditory and/or command hallucinations telling him to hurt himself. At the time of my examination the patient does admit that he is thinking about "bad stuff", and that he has having both auditory and visual hallucinations, but he is not able to describe these hallucinations and currently denies suicidal or homicidal ideations. I saw this patient for similar symptoms about 1 month ago. Eb Medrano is a 25 year old male with a history schizoaffective disorder, bipolar disorder, and autism or developmental delay. In my interview with the patient, he reports having auditory and visual hallucinations, stating " voices are irritating me, they're telling me to do bad stuff and I see ghosts." The patient is a poor historian; he denies suicidal/homicidal ideation. PAST PSYCHIATRIC HISTORY Diagnoses: schizoaffective disorder, bipolar disorder, and autism or developmental delay. Suicide attempts or Self-harm behavior: None reported Prior psychiatric hospitalizations: yes Substance Abuse history: Denies Previous psychiatric medications tried:( unknown monthly INJ) Outpatient treatment: Yes PAST MEDICAL HISTORY: unknown Family Psychiatric History: unknown SOCIAL HISTORY Marital Status: Single Living Arrangements: Lives in a detention Employment Status: Unemployed Access to guns/weapons: None reported Education: 12th grade History of Abuse: None reported Legal History: None reported REVIEW OF SYSTEMS Constitutional: Negative for weight loss ENT: Negative for stridor Respiratory: Negative for cough or hemoptysis All other systems reviewed and are negative MENTAL STATUS EXAMINATION General Appearance and Behavior: Age appropriate, good hygiene, wearing appropriate clothes, poor eye contact, irritable Cooperation: guarded Mood: OK Affect and affective range: Incongruent with mood Thought Process: Impoverished Thought Content:Not suicidal Suicidal Speech: normal tone and pace Suicidal Ideation: Denies Homicidal Ideation: Denies Hallucinations: Auditory/ Visual Delusions: Denies Impulse Control: Impaired Insight and Judgment: Limited insight and judgment, Memory: Normal Attention: Normal Orientation: Alert, oriented Assessment and Plan (1) Schizoaffective Disorder Current Visit: Yes Status: Acute Treatment Plan 1013 Start Risperidone 1mg po BID The patient to comply with previously prescribed medications Risks, benefits and alternatives of medications discussed with the patient, questions answered and consent obtained from patient. PSYCHOTHERAPY: Supportive psychotherapy provided MEDICAL: Per primary team DELIRIUM PRECAUTIONS: Please re-orient patient frequently, keep lights on during the day, and minimize benzodiazepines and opiates as these medications could worsen patient's confusion. MEDICAL GENETICIST: Defer to primary DISPOSITION: Recommend acute inpatient psychiatric hospitalization at this time. FOLLOW-UP: Will follow Thank you for the consult. Please contact with any questions and/or concerns. Medications and Allergies Medications and Allergies Allergies Allergy/AdvReac Type Severity Reaction Status Date / Time No Known Allergies Allergy Unverified 04/25/17 13:02 Home Medications Medication Instructions Recorded Confirmed Last Taken Type Benztropine Mesylate 1 mg PO BID 11/29/18 11/03/20 11/28/18 History [place] Carbonate ER [Lithobid ER] 450 mg PO BID 11/29/18 11/03/20 11/28/18 History Trazodone HCl 150 mg PO QHS 11/29/18 11/03/20 11/28/18 History clonazePAM [Klonopin] 1 mg PO BID 11/29/18 11/03/20 11/28/18 History fluPHENAZine HCl [Prolixin] 5 mg PO DAILY 11/29/18 11/03/20 11/28/18 History at noon fluPHENAZine HCl [fluPHENAZine] 10 mg PO BID 11/29/18 11/03/20 11/28/18 History AM&QHS cloZAPine [Clozapine] 50 mg PO BID 09/28/20 11/03/20 Unknown History Mental Status Exam - Vital signs Last Vital Signs Temp 98.3 F 11/03/20 09:11 Pulse 90 11/03/20 09:11 Resp 20 11/03/20 09:11 BP 112/67 11/03/20 09:11 Pulse Ox 97 11/03/20 09:11 Results Result Diagrams: 11/03/20 07:32 11/03/20 07:32 Abnormal lab results 11/03/20 Range/Units 07:32 MCV 96 H (84-94) fl [place] % (Auto) 11.1 H (0.0-7.3) % [place] # (Auto) 1.0 H (0.0-0.8) K/mm3 All other labs normal.
[2020-11-03] MEDS ORDERED: risperiDONE 1 MG TAB PO SCH (13:30)
[2020-11-03 17:26] LABS: Bilirubin,Urine NEG (Negative); Blood,Urine NEG (Negative); Color,Urine Yellow (Yellow); Mucus,Urine FEW /HPF; Protein,Urine <15 mg/dL mg/dL (Negative)
[2020-11-03 17:35] LABS: Amphetamine Screen,Urine Negative; Cannabinoid Screen,Urine Negative; Cocaine Screen,Urine Negative; Methadone Screen,Urine Negative; Opiate Screen,Urine Negative
[2020-11-03 18:44] LABS: Benzodiazepines Screen,Urine Negative
== END 2020-11-03 19:47 ==
LOC: ED 04:29
DX: F25.9 Schizoaffective disorder, unspecified (principal); F99 Mental disorder, not otherwise specified; F17.200 Nicotine dependence, unspecified, uncomplicated; Z20.822 Contact with and (suspected) exposure to COVID-19; Z79.899 Other long term (current) drug therapy
CPT/HCPCS: 36415; 80048; 80307; 81001; 85025; 99284; U0003; 80320; G0480

== ENCOUNTER 2021-04-12 14:11 | Emergency (ER) | payer MEDICARE ==
[2021-04-12] MEDS ORDERED: hydrOXYzine PAMOATE 25 MG CAP PO ONE (20:47)
--- NOTE | 2021-04-12 21:22 | XRay Report ---
CHEST 1 VIEW INDICATION / CLINICAL INFORMATION: cough. COMPARISON: None available. FINDINGS: SUPPORT DEVICES: None. HEART / MEDIASTINUM: No significant abnormality. LUNGS / PLEURA: No significant pulmonary or pleural abnormality. No pneumothorax. ADDITIONAL FINDINGS: No significant additional findings. IMPRESSION: 1. No acute findings. Signer Name: Neil Strickland MD Signed: 04/12/2021 9:18 PM Workstation Name: [id number]
[2021-04-12 21:40] VITALS: BP 121/74
--- NOTE | 2021-04-12 21:40 | Emergency Department Report ---
ED General Adult HPI - General Chief complaint: Skin Rash Stated complaint: itching Source: EMS Mode of arrival: Stretcher Limitations: No Limitations - History of Present Illness Initial comments: Patient is a 26-year-old -Tongan male with history of chronic schizoaffective disorder who presented to the ED with complaint of acute onset persistent nasal and sinus congestion, persistent dry cough with pleuritic chest wall pain with cough, diffuse itchy mild erythematous maculopapular rashes for the last 1 week, worse in the last 2 days. Patient denies fever, chills, nausea and vomiting, diarrhea, dysuria, urinary frequency and urgency, abdominal pain, sore throat, headache, dizziness, syncope, shortness of breath or testicular pain, suicidal or homicidal ideation or hallucinations. MD Complaint: Dry cough, pleuritic chest pain with cough, nasal and sinus congestion, -: Sudden, week(s) (1) Location: chest Radiation: non-radiation Severity scale (0 -10): 2 Quality: aching, constant, other (Itchy) Consistency: constant Improves with: none Worsens with: none Associated Symptoms: denies other symptoms, cough, rash (Mildly diffuse urticarial rashes). denies: confusion, chest pain, diaphoresis, fever/chills, headaches, loss of appetite, malaise, nausea/vomiting, seizure, shortness of breath, syncope, weakness, other Treatments Prior to Arrival: none - Related Data Home Medications Medication Instructions Recorded Confirmed Last Taken Benztropine Mesylate 1 mg PO BID 11/29/18 04/12/21 11/28/18 [place] Carbonate ER [Lithobid ER] 450 mg PO BID 11/29/18 04/12/21 11/28/18 Trazodone HCl 150 mg PO QHS 11/29/18 04/12/21 11/28/18 clonazePAM [Klonopin] 1 mg PO BID 11/29/18 04/12/21 11/28/18 fluPHENAZine HCl [Prolixin] 5 mg PO DAILY 11/29/18 04/12/21 11/28/18 at noon fluPHENAZine HCl [fluPHENAZine] 10 mg PO BID 11/29/18 04/12/21 11/28/18 AM&QHS cloZAPine [Clozapine] 50 mg PO BID 09/28/20 04/12/21 Unknown Previous Rx's Medication Instructions Recorded Last Taken Type Cetirizine HCl [Zyrtec 10mg tab] 10 mg PO DAILY #20 tab 04/12/21 Unknown Rx Allergies Allergy/AdvReac Type Severity Reaction Status Date / Time No Known Allergies Allergy Verified 04/12/21 14:15 ED Review of Systems ROS: Stated complaint: itching Other details as noted in HPI Constitutional: denies: chills, fever Eyes: denies: eye pain, eye discharge, vision change ENT: congestion. denies: ear pain, throat pain Respiratory: cough. denies: shortness of breath, wheezing Cardiovascular: denies: chest pain, palpitations Endocrine: no symptoms reported Gastrointestinal: denies: abdominal pain, nausea, vomiting, diarrhea Genitourinary: denies: urgency, dysuria Musculoskeletal: denies: back pain, joint swelling, arthralgia Skin: rash (Itchy macular rashes). denies: lesions Neurological: denies: headache, weakness, paresthesias Psychiatric: anxiety. denies: depression Hematological/Lymphatic: denies: easy bleeding, easy bruising ED Past Medical Hx - Past Medical History Hx Psychiatric Treatment: Yes (SCHIZOAFFECTIVE DISORDER) - Surgical History Additional Surgical History: UNKNOWN - Social History Smoking Status: Current Every Day Smoker Substance Use Type: None - Medications Home Medications: Home Medications Medication Instructions Recorded Confirmed Last Taken Type Benztropine Mesylate 1 mg PO BID 11/29/18 04/12/21 11/28/18 History [place] Carbonate ER [Lithobid ER] 450 mg PO BID 11/29/18 04/12/21 11/28/18 History Trazodone HCl 150 mg PO QHS 11/29/18 04/12/21 11/28/18 History clonazePAM [Klonopin] 1 mg PO BID 11/29/18 04/12/21 11/28/18 History fluPHENAZine HCl [Prolixin] 5 mg PO DAILY 11/29/18 04/12/21 11/28/18 History at noon fluPHENAZine HCl [fluPHENAZine] 10 mg PO BID 11/29/18 04/12/21 11/28/18 History AM&QHS cloZAPine [Clozapine] 50 mg PO BID 09/28/20 04/12/21 Unknown History Cetirizine HCl [Zyrtec 10mg tab] 10 mg PO DAILY #20 tab 04/12/21 Unknown Rx ED Physical Exam - General Limitations: No Limitations General appearance: alert, in no apparent distress - Head Head exam: Present: atraumatic, normocephalic, normal inspection - Eye Eye exam: Present: normal appearance, PERRL, EOMI Pupils: Present: normal accommodation - ENT ENT exam: Present: normal exam, normal orophraynx, mucous membranes moist, TM's normal bilaterally, normal external ear exam - Neck Neck exam: Present: normal inspection, full ROM. Absent: tenderness - Respiratory Respiratory exam: Present: normal lung sounds bilaterally. Absent: respiratory distress, wheezes, rales, rhonchi, chest wall tenderness, accessory muscle use, decreased breath sounds - Cardiovascular Cardiovascular Exam: Present: normal rhythm, tachycardia, normal heart sounds. Absent: systolic murmur, diastolic murmur, rubs, gallop - GI/Abdominal GI/Abdominal exam: Present: soft, normal bowel sounds. Absent: tenderness, guarding, rebound, hyperactive bowel sounds, hypoactive bowel sounds, organomegaly - Extremities Exam Extremities exam: Present: normal inspection, full ROM, normal capillary refill - Back Exam Back exam: Present: normal inspection, full ROM. Absent: tenderness, CVA tenderness (R), CVA tenderness (L), muscle spasm, paraspinal tenderness, vertebral tenderness - Neurological Exam Neurological exam: Present: alert, oriented X3, CN II-XII intact, normal gait, reflexes normal - Psychiatric Psychiatric exam: Present: normal mood, anxious, flat affect - Skin Skin exam: Present: warm, dry, intact, normal color. Absent: rash ED Course Vital Signs 04/12/21 04/12/21 14:14 20:59 Temperature 98.1 F Pulse Rate 114 H Respiratory 16 Rate Blood Pressure 130/82 [Right] O2 Sat by Pulse 99 99 Oximetry ED Medical Decision Making - Radiology Data Radiology results: report reviewed, image reviewed [facility] [address] [place] [address] XRay Report Signed Patient: DWAINE DUDLEY MR#: [id number] 3 : 1995 Acct:[id number] Age/Sex: 26 / M ADM Date: 04/12/21 Loc: ED Attending Dr: Ordering Physician: HEATHER BRISENO Date of Service: 01/18/22 Procedure(s): XR chest 1V ap Accession Number(s): [id number] cc: HEATHER BRISENO Fluoro Time In Minutes: CHEST 1 VIEW INDICATION / CLINICAL INFORMATION: cough. COMPARISON: None available. FINDINGS: SUPPORT DEVICES: None. HEART / MEDIASTINUM: No significant abnormality. LUNGS / PLEURA: No significant pulmonary or pleural abnormality. No pneumothorax. ADDITIONAL FINDINGS: No significant additional findings. IMPRESSION: 1. No acute findings. Signer Name: Neil Allen MD Signed: 04/12/2021 9:18 PM Workstation Name: [id number] Transcribed By: SB Dictated By: NEIL ALLEN MD Electronically Authenticated By: NEIL ALLEN MD Signed Date/Time: 04/12/212117 DD/ 17 TD/TT: - Medical Decision Making This is a 26-year-old -Tongan male with history of chronic schizo affective disorder who presented to the ED with complaint of acute onset persistent nasal and sinus congestion, persistent dry cough with pleuritic chest wall pain with cough, diffuse itchy mild erythematous maculopapular rashes for the last 1 week, worse in the last 2 days. In the ED, patient is alert and oriented x3 and is not in any distress, afebrile but tachycardic in triage. Patient was treated for itching with Benadryl, and chest x-ray showed no acute cardiopulmonary abnormalities or pneumonitis. Patient was discharged home with prescription of Benadryl for itching and cough medications. Patient is advised to return to the ED immediately if symptoms get worse. Patient also advised to follow-up with his primary care physician in 7 to 10 days for reevaluation. - Differential Diagnosis acute urtucaria; URI, Bronchitis; Irritant dermatitis Critical care attestation.: If time is entered above; I have spent that time in minutes in the direct care of this critically ill patient, excluding procedure time. ED Disposition Clinical Impression: Acute upper respiratory infection, Acute urticaria, Itching with irritation Acute bronchitis Qualifiers: Bronchitis organism: other organism Qualified Code(s): J20.8 - Acute bronchitis due to other specified organisms Disposition: HOME / SELF CARE / HOMELESS Is pt being admited?: No Does the pt Need Aspirin: No Condition: Stable Instructions: Acute Bronchitis (ED), Allergies, Adult, [id number], Viral Respiratory Infection, [id number]-Wt-Gjsa, Cough, Adult, [id number], Acute Bronchitis, Adult, Oaeb-bl-Jofz, Hives, Adic-wf-Pajd, Rash, Adult, Pccq-qc-[id number] Additional Instructions: Chest x-ray showed no acute cardiopulmonary abnormalities or pneumonitis. Therefore take medication with food, drink plenty fluids and follow-up with your primary care physician in 7 to 10 days for reevaluation. Return to the ED immediately if symptoms get worse Prescriptions: Cetirizine HCl [Zyrtec 10mg tab] 10 mg PO DAILY #20 tab Referrals: [facility] [Provider Group] - 7-10 days Time of Disposition: 21:42 Print Language: FRENCH
== END 2021-04-12 22:17 | disposition home or self-care (01) ==
LOC: ED 14:11
DX: J06.9 Acute upper respiratory infection, unspecified (principal); L50.9 Urticaria, unspecified; R21 Rash and other nonspecific skin eruption; J20.8 Acute bronchitis due to other specified organisms; F17.200 Nicotine dependence, unspecified, uncomplicated; F20.9 Schizophrenia, unspecified
CPT/HCPCS: 71045; 99283; Q0177; J3490

== ENCOUNTER 2021-06-06 21:36 | Emergency (ER) | payer MEDICARE ==
[2021-06-06 23:00] LABS: Basophils % (Auto) 0.3 % (0.0-1.8); Eosinophils # (Auto) 0.2 K/mm3 (0.0-0.4); Eosinophils % (Auto) 2.1 % (0.0-4.3); Hematocrit 42.7 % (35.5-45.6); Hemoglobin 13.5 gm/dl (11.8-15.2); Lymphocytes # (Auto) 2.9 K/mm3 (1.2-5.4); Lymphocytes % (Auto) 31.5 % (13.4-35.0); Mean Corpuscular HGB Conc 32 % (32-34); Mean Corpuscular Volume 94 fl (84-94); Monocytes # (Auto) 1.1 K/mm3 (0.0-0.8); Monocytes % (Auto) 12.1 % (0.0-7.3); Platelet Count 172 K/mm3 (140-440); Red Blood Count 4.56 M/mm3 (3.65-5.03); Red Cell Distribution Width 15.4 % (13.2-15.2)
[2021-06-06 23:18] LABS: BUN/Creatinine Ratio 11; Blood Urea Nitrogen 11 mg/dL (9-20); Calcium 8.6 mg/dL (8.4-10.2); Hemolysis Index 10
[2021-06-06 23:22] LABS: Alanine Aminotransferase 32 units/L (7-56); Bilirubin,Direct < 0.2 mg/dL (0-0.2)
--- NOTE | 2021-06-06 23:22 | Emergency Department Report ---
ED Psych HPI - General Chief Complaint: Psych Stated Complaint: PSYCH/HALLUCINATIONS Time Seen by Provider: 06/06/21 22:13 Source: patient, EMS Mode of arrival: Ambulatory - History of Present Illness Initial Comments: Patient is 26 years old male with history of schizophrenia. Patient presented to the ER for mental health evaluation. Patient stated that he is suicidal but does not have a plan. Patient denied any auditory hallucination or visual hallucination. No homicidal ideation. Patient is refusing to talk more because he said he is very sleepy. MD Complaint: suicidal ideation -: days(s) Associated Psychiatric Symptoms: suicidal ideation History of same: Yes Quality: constant Associated Symptoms: denies other symptoms Treatments Prior to Arrival: none - Related Data Home Medications Medication Instructions Recorded Confirmed Last Taken Benztropine Mesylate 1 mg PO BID 11/29/18 04/12/21 11/28/18 [place] Carbonate ER [Lithobid ER] 450 mg PO BID 11/29/18 04/12/21 11/28/18 Trazodone HCl 150 mg PO QHS 11/29/18 04/12/21 11/28/18 clonazePAM [Klonopin] 1 mg PO BID 11/29/18 04/12/21 11/28/18 fluPHENAZine HCl [Prolixin] 5 mg PO DAILY 11/29/18 04/12/21 11/28/18 at noon fluPHENAZine HCl [fluPHENAZine] 10 mg PO BID 11/29/18 04/12/21 11/28/18 AM&QHS cloZAPine [Clozapine] 50 mg PO BID 09/28/20 04/12/21 Unknown Previous Rx's Medication Instructions Recorded Last Taken Type Cetirizine HCl [Zyrtec 10mg tab] 10 mg PO DAILY #20 tab 04/12/21 Unknown Rx Allergies Allergy/AdvReac Type Severity Reaction Status Date / Time No Known Allergies Allergy Verified 04/12/21 14:15 ED Review of Systems ROS: Stated complaint: PSYCH/HALLUCINATIONS Other details as noted in HPI Comment: All other systems reviewed and negative Constitutional: denies: chills, fever Respiratory: denies: cough, shortness of breath, SOB with exertion, SOB at rest Cardiovascular: denies: chest pain, palpitations Gastrointestinal: denies: abdominal pain, nausea, vomiting, diarrhea, constipation, hematemesis Musculoskeletal: denies: back pain Neurological: denies: headache, weakness, numbness, paresthesias, confusion Psychiatric: suicidal thoughts. denies: auditory hallucinations, visual hallucinations, homicidal thoughts ED Past Medical Hx - Past Medical History Previous Medical History?: Yes Hx Psychiatric Treatment: Yes (SCHIZOAFFECTIVE DISORDER) - Surgical History Past Surgical History?: Yes Additional Surgical History: UNKNOWN - Social History Smoking Status: Current Every Day Smoker Substance Use Type: None - Medications Home Medications: Home Medications Medication Instructions Recorded Confirmed Last Taken Type Benztropine Mesylate 1 mg PO BID 11/29/18 04/12/21 11/28/18 History [place] Carbonate ER [Lithobid ER] 450 mg PO BID 11/29/18 04/12/21 11/28/18 History Trazodone HCl 150 mg PO QHS 11/29/18 04/12/21 11/28/18 History clonazePAM [Klonopin] 1 mg PO BID 11/29/18 04/12/21 11/28/18 History fluPHENAZine HCl [Prolixin] 5 mg PO DAILY 11/29/18 04/12/21 11/28/18 History at noon fluPHENAZine HCl [fluPHENAZine] 10 mg PO BID 11/29/18 04/12/21 11/28/18 History AM&QHS cloZAPine [Clozapine] 50 mg PO BID 09/28/20 04/12/21 Unknown History Cetirizine HCl [Zyrtec 10mg tab] 10 mg PO DAILY #20 tab 04/12/21 Unknown Rx ED Physical Exam - General Limitations: Other General appearance: alert, in no apparent distress - Head Head exam: Present: atraumatic, normocephalic, normal inspection - Eye Eye exam: Present: normal appearance - ENT ENT exam: Present: normal exam, normal orophraynx, mucous membranes moist - Neck Neck exam: Present: normal inspection, full ROM. Absent: tenderness, meningismus - Respiratory Respiratory exam: Present: normal lung sounds bilaterally - Cardiovascular Cardiovascular Exam: Present: regular rate, normal rhythm, normal heart sounds - GI/Abdominal GI/Abdominal exam: Present: soft, normal bowel sounds. Absent: distended, tenderness, guarding, rebound, rigid, organomegaly, mass, bruit, pulsatile mass, hernia - Extremities Exam Extremities exam: Present: normal inspection, full ROM, normal capillary refill. Absent: tenderness, pedal edema, joint swelling, calf tenderness - Back Exam Back exam: Present: normal inspection, full ROM. Absent: CVA tenderness (R), CVA tenderness (L) - Neurological Exam Neurological exam: Present: alert, oriented X3, CN II-XII intact, normal gait - Psychiatric Psychiatric exam: Present: flat affect, suicidal ideation. Absent: homicidal ideation - Skin Skin exam: Present: warm, intact, normal color ED Course Vital Signs 06/06/21 06/06/21 06/07/21 21:45 23:48 03:26 Temperature 97.8 F 98.4 F Pulse Rate 90 85 Respiratory 18 18 18 Rate Blood Pressure 124/62 118/68 [Right] O2 Sat by Pulse 97 97 97 Oximetry ED Medical Decision Making - Lab Data Result diagrams: 06/06/21 22:37 06/06/21 22:37 - Medical Decision Making Patient is 26 years old male with history of schizophrenia. Patient presented to the ER for mental health evaluation. Patient stated that he is suicidal but does not have a plan. Patient denied any auditory hallucination or visual hallucination. No homicidal ideation. Patient is refusing to talk more because he said he is very sleepy. Labs reviewed and is unremarkable however urinalysis and urine drug screen still pending. Patient is medically cleared to be evaluated by psychiatric team. Critical care attestation.: If time is entered above; I have spent that time in minutes in the direct care of this critically ill patient, excluding procedure time. ED Disposition Clinical Impression: Suicidal ideation Is pt being admited?: No Condition: Stable
[2021-06-07 07:24] LABS: Bilirubin,Urine NEG (Negative); Blood,Urine NEG (Negative); Color,Urine Yellow (Yellow); Mucus,Urine 1+ /HPF; Protein,Urine <15 mg/dL mg/dL (Negative)
[2021-06-07 07:27] LABS: Amphetamine Screen,Urine PRESUMPTIVE NEGATIVE; Benzodiazepines Screen,Urine PRESUMPTIVE NEGATIVE; Cannabinoid Screen,Urine PRESUMPTIVE NEGATIVE; Cocaine Screen,Urine PRESUMPTIVE NEGATIVE; Methadone Screen,Urine PRESUMPTIVE NEGATIVE; Opiate Screen,Urine PRESUMPTIVE NEGATIVE
[2021-06-07 08:20] VITALS: BP 130/72
--- NOTE | 2021-06-07 09:53 | Consultation ---
History of Present Illness - Reason for Consult Consult date: 06/07/21 Reason for consult: psychosis - History of Present Psychiatric Illness The patient was seen today. He seems to have some form of developmental delay. He did not know who the [place] President is nor could he recall what month it was. He says he came to the ER because he is hearing voices. The patient says he's been hearing voices for about two years. I ask him was they worse today, he denies. He denies the voices being threatening or command in nature. He denies them being negative. He says "it's just stuff. Noise." He denies SI/HI or any fear of endangerment. The patient says he did have an attempt about 10 years ago. He says he has a history of bipolar and schizophrenia. The patient could not recall his meds. He says his mom takes care of them. The patient denies any illicit drug use, alcohol or nicotine. I spoke to the patient's mom. She confirms what the patient is telling me. She says he's been hearing voices for years and has had several inpatient admits. She says but the voices never go away. Mom says the patient sees a psychiatrist on a regular basis, and says his psychiatrist calls to check on the patient every Sunday. She says the patient's Abilify Maintena was just increased and given on the 3rd of this month. She says the patient is also on Clozapine, Carencro, Depakote, Trazodone and Benztropine. I informed mom that there was nothing I could recommend inpatient treatment for since the hallucinations are chronic, not worse than normal, and are non threatening in nature. I also advised mom that it seems the patient has a solid outpatient regimen and should continue this, and continue to follow up with his outpatient psychiatrist. Mom agrees with this plan. She is asking for medicaid transportation home for the patient. PAST PSYCHIATRIC HISTORY Diagnoses: schizoaffective disorder, bipolar disorder, and autism or developmental delay. Suicide attempts or Self-harm behavior: Once Prior psychiatric hospitalizations: yes Substance Abuse history: Denies Previous psychiatric medications tried:( unknown monthly INJ) Outpatient treatment: Yes PAST MEDICAL HISTORY: unknown Family Psychiatric History: unknown SOCIAL HISTORY Marital Status: Single Living Arrangements: Lives in a senior living Employment Status: Unemployed Access to guns/weapons: None reported Education: 12th grade History of Abuse: None reported Legal History: None reported REVIEW OF SYSTEMS Constitutional: Negative for weight loss ENT: Negative for stridor Respiratory: Negative for cough or hemoptysis All other systems reviewed and are negative MENTAL STATUS EXAMINATION General Appearance and Behavior: Age appropriate, good hygiene, wearing appropriate clothes, fair eye contact, calm and cooperative Cooperation: cooperative Mood: good Affect and affective range: Incongruent with mood Thought Process: circumstantial Thought Content: hallucinations Speech: normal tone and pace Suicidal Ideation: Denies Homicidal Ideation: Denies Hallucinations: Auditory Delusions: None elicited Impulse Control: Limited Insight and Judgment: Limited insight and judgment, Memory: Normal Attention: Normal Orientation: Alert, oriented x 2 Assessment and Plan (1) Hx of Schizophrenia Treatment Plan Mom is requesting medicaid van to transport the patient home The patient to continue previously prescribed medications Risks, benefits and alternatives of medications discussed with the patient, questions answered and consent obtained from patient. PSYCHOTHERAPY: Supportive psychotherapy provided MEDICAL: Per primary team DELIRIUM PRECAUTIONS: Please re-orient patient frequently, keep lights on during the day, and minimize benzodiazepines and opiates as these medications could worsen patient's confusion. EMBEDDED NURSE: Defer to primary DISPOSITION: Do not recommend acute psychiatric inpatient treatment. Both mom and the patient advised that if SI/HI or any fear of endangerment are to arise they are to seek immediate assistance. FOLLOW-UP: Will sign off Thank you for the consult. Please contact with any questions and/or concerns. Medications and Allergies Allergies Allergy/AdvReac Type Severity Reaction Status Date / Time No Known Allergies Allergy Verified 04/12/21 14:15 Home Medications Medication Instructions Recorded Confirmed Last Taken Type Benztropine Mesylate 1 mg PO BID 11/29/18 04/12/21 11/28/18 History [place] Carbonate ER [Lithobid ER] 450 mg PO BID 11/29/18 04/12/21 11/28/18 History Trazodone HCl 150 mg PO QHS 11/29/18 04/12/21 11/28/18 History clonazePAM [Klonopin] 1 mg PO BID 11/29/18 04/12/21 11/28/18 History cloZAPine [Clozapine] 100 mg PO BID 09/28/20 04/12/21 Unknown History Cetirizine HCl [Zyrtec 10mg tab] 10 mg PO DAILY #20 tab 04/12/21 Unknown Rx ARIPiprazole [Abilify Maintena] 400 mg IM 06/07/21 05/26/21 09:00 History Divalproex ER [DepaKOTE ER] 250 mg PO BID 06/07/21 06/07/21 Unknown History Divalproex ER [DepaKOTE ER] 500 mg PO HS 06/07/21 06/07/21 Unknown History Melatonin [Melatonin 10MG CAP] 10 mg PO HS 06/07/21 06/07/21 Unknown History Mental Status Exam - Vital signs Last Vital Signs Temp 98.4 F 06/07/21 08:18 Pulse 101 H 06/07/21 08:18 Resp 18 06/07/21 08:18 BP 130/72 06/07/21 08:18 Pulse Ox 99 06/07/21 08:18 Results Result Diagrams: 06/06/21 22:37 06/06/21 22:37 Abnormal lab results 06/06/21 06/06/21 06/06/21 Range/Units 22:37 22:37 22:37 RDW 15.4 H (13.2-15.2) % [place] % (Auto) 12.1 H (0.0-7.3) % [place] # (Auto) 1.1 H (0.0-0.8) K/mm3 Glucose 121 H (75-100) mg/dL Total Protein (6.3-8.2) g/dL Salicylates < 0.3 L (2.8-20.0) mg/dL Acetaminophen (10.0-30.0) ug/mL 06/06/21 06/06/21 Range/Units 22:37 22:37 RDW (13.2-15.2) % [place] % (Auto) (0.0-7.3) % [place] # (Auto) (0.0-0.8) K/mm3 Glucose (75-100) mg/dL Total Protein 6.0 L (6.3-8.2) g/dL Salicylates (2.8-20.0) mg/dL Acetaminophen 5.0 L (10.0-30.0) ug/mL All other labs normal.
--- NOTE | 2021-06-07 12:13 | Event Note ---
Date: 06/07/21 The patient was evaluated in the emergency department for symptoms described in the history of present illness. He/she was evaluated in the context of the global COVID-19 pandemic, which necessitated consideration that the patient might be at risk for infection with the virus that causes COVID-19. Institutional protocols and algorithms that pertain to the evaluation of patients at risk for COVID-19 are in a state of rapid change based on information released by regulatory bodies including the CDC and federal and state organizations. These policies and algorithms were followed during the patient's care in the emergency department. Please note that these policies, procedures and recommendations changed on a rapid basis. Laboratory studies, vital signs, nursing documentation, ER documentation, and psychiatric documentation are reviewed and appreciated. Nursing team reports no acute events this morning or concerns. The patient is awake and ambulating and does not appear to be in any acute distress. The patient was deemed medically suitable for psychiatric disposition and placement during his initial ER evaluation. The patient continues to remain medically suitable for psychiatric placement and disposition. He is currently pending psychiatric placement. The psychiatric team have recommended that he does not meet criteria for 1013 hold or involuntary confinement. His laboratory studies, urinalysis and drug screen are unremarkable. The patient is awake, ambulatory, denies physical pain, and currently denies homicidality and suicidality. His family would like him to come home, as per review of psychiatric documentation Lab Results 06/06/21 06/06/21 06/06/21 Range/Units 22:37 22:37 22:37 WBC 9.1 (4.5-11.0) K/mm3 RBC 4.56 (3.65-5.03) M/mm3 Hgb 13.5 (11.8-15.2) gm/dl Hct 42.7 (35.5-45.6) % MCV 94 (84-94) fl MCH 30 (28-32) pg MCHC 32 (32-34) % RDW 15.4 H (13.2-15.2) % Plt Count 172 (140-440) K/mm3 Lymph % (Auto) 31.5 (13.4-35.0) % [place] % (Auto) 12.1 H (0.0-7.3) % Eos % (Auto) 2.1 (0.0-4.3) % Baso % (Auto) 0.3 (0.0-1.8) % Lymph # (Auto) 2.9 (1.2-5.4) K/mm3 [place] # (Auto) 1.1 H (0.0-0.8) K/mm3 Eos # (Auto) 0.2 (0.0-0.4) K/mm3 Baso # (Auto) 0.0 (0.0-0.1) K/mm3 Seg Neutrophils % 54.0 (40.0-70.0) % Seg Neutrophils # 4.9 (1.8-7.7) K/mm3 Sodium 143 (137-145) mmol/L Potassium 4.2 (3.6-5.0) mmol/L Chloride 106.9 (98-107) mmol/L Carbon Dioxide 27 (22-30) mmol/L Anion Gap 13 mmol/L BUN 11 (9-20) mg/dL Creatinine 1.0 (0.8-1.3) mg/dL Estimated GFR > 60 ml/min BUN/Creatinine Ratio 11 % Glucose 121 H (75-100) mg/dL Calcium 8.6 (8.4-10.2) mg/dL Total Bilirubin (0.1-1.2) mg/dL Direct Bilirubin (0-0.2) mg/dL Indirect Bilirubin mg/dL AST (5-40) units/L ALT (7-56) units/L Alkaline Phosphatase (35-129) units/L Total Protein (6.3-8.2) g/dL Albumin (3.9-5) g/dL Albumin/Globulin Ratio % Urine Color (Yellow) Urine Turbidity (Clear) Urine pH (5.0-7.0) Ur Specific [place] (1.003-1.030) Urine Protein (Negative) mg/dL Urine Glucose (UA) (Negative) mg/dL Urine Ketones (Negative) mg/dL Urine Blood (Negative) Urine Nitrite (Negative) Urine Bilirubin (Negative) Urine Urobilinogen (<2.0) mg/dL Ur Leukocyte Esterase (Negative) Urine WBC (Auto) (0.0-6.0) /HPF Urine RBC (Auto) (0.0-6.0) /HPF U Epithel Cells (Auto) (0-13.0) /HPF Urine Mucus /HPF Salicylates < 0.3 L (2.8-20.0) mg/dL Urine Opiates Screen Urine Methadone Screen Acetaminophen (10.0-30.0) ug/mL Ur Barbiturates Screen Ur Phencyclidine Scrn Ur Amphetamines Screen U Benzodiazepines Scrn Urine Cocaine Screen U Marijuana (THC) Screen Drugs of Abuse Note 06/06/21 06/06/21 06/07/21 Range/Units 22:37 22:37 07:00 WBC (4.5-11.0) K/mm3 RBC (3.65-5.03) M/mm3 Hgb (11.8-15.2) gm/dl Hct (35.5-45.6) % MCV (84-94) fl MCH (28-32) pg MCHC (32-34) % RDW (13.2-15.2) % Plt Count (140-440) K/mm3 Lymph % (Auto) (13.4-35.0) % [place] % (Auto) (0.0-7.3) % Eos % (Auto) (0.0-4.3) % Baso % (Auto) (0.0-1.8) % Lymph # (Auto) (1.2-5.4) K/mm3 [place] # (Auto) (0.0-0.8) K/mm3 Eos # (Auto) (0.0-0.4) K/mm3 Baso # (Auto) (0.0-0.1) K/mm3 Seg Neutrophils % (40.0-70.0) % Seg Neutrophils # (1.8-7.7) K/mm3 Sodium (137-145) mmol/L Potassium (3.6-5.0) mmol/L Chloride (98-107) mmol/L Carbon Dioxide (22-30) mmol/L Anion Gap mmol/L BUN (9-20) mg/dL Creatinine (0.8-1.3) mg/dL Estimated GFR ml/min BUN/Creatinine Ratio % Glucose (75-100) mg/dL Calcium (8.4-10.2) mg/dL Total Bilirubin 0.30 (0.1-1.2) mg/dL Direct Bilirubin < 0.2 (0-0.2) mg/dL Indirect Bilirubin 0.1 mg/dL AST 21 (5-40) units/L ALT 32 (7-56) units/L Alkaline Phosphatase 57 (35-129) units/L Total Protein 6.0 L (6.3-8.2) g/dL Albumin 4.0 (3.9-5) g/dL Albumin/Globulin Ratio 2.0 % Urine Color Yellow (Yellow) Urine Turbidity Clear (Clear) Urine pH 6.0 (5.0-7.0) Ur Specific [place] 1.020 (1.003-1.030) Urine Protein <15 mg/dl (Negative) mg/dL Urine Glucose (UA) Neg (Negative) mg/dL Urine Ketones Tr (Negative) mg/dL Urine Blood Neg (Negative) Urine Nitrite Neg (Negative) Urine Bilirubin Neg (Negative) Urine Urobilinogen 4.0 (<2.0) mg/dL Ur Leukocyte Esterase Neg (Negative) Urine WBC (Auto) 5.0 (0.0-6.0) /HPF Urine RBC (Auto) 4.0 (0.0-6.0) /HPF U Epithel Cells (Auto) < 1.0 (0-13.0) /HPF Urine Mucus 1+ /HPF Salicylates (2.8-20.0) mg/dL Urine Opiates Screen Urine Methadone Screen Acetaminophen 5.0 L (10.0-30.0) ug/mL Ur Barbiturates Screen Ur Phencyclidine Scrn Ur Amphetamines Screen U Benzodiazepines Scrn Urine Cocaine Screen U Marijuana (THC) Screen Drugs of Abuse Note 06/07/21 Range/Units 07:00 WBC (4.5-11.0) K/mm3 RBC (3.65-5.03) M/mm3 Hgb (11.8-15.2) gm/dl Hct (35.5-45.6) % MCV (84-94) fl MCH (28-32) pg MCHC (32-34) % RDW (13.2-15.2) % Plt Count (140-440) K/mm3 Lymph % (Auto) (13.4-35.0) % [place] % (Auto) (0.0-7.3) % Eos % (Auto) (0.0-4.3) % Baso % (Auto) (0.0-1.8) % Lymph # (Auto) (1.2-5.4) K/mm3 [place] # (Auto) (0.0-0.8) K/mm3 Eos # (Auto) (0.0-0.4) K/mm3 Baso # (Auto) (0.0-0.1) K/mm3 Seg Neutrophils % (40.0-70.0) % Seg Neutrophils # (1.8-7.7) K/mm3 Sodium (137-145) mmol/L Potassium (3.6-5.0) mmol/L Chloride (98-107) mmol/L Carbon Dioxide (22-30) mmol/L Anion Gap mmol/L BUN (9-20) mg/dL Creatinine (0.8-1.3) mg/dL Estimated GFR ml/min BUN/Creatinine Ratio % Glucose (75-100) mg/dL Calcium (8.4-10.2) mg/dL Total Bilirubin (0.1-1.2) mg/dL Direct Bilirubin (0-0.2) mg/dL Indirect Bilirubin mg/dL AST (5-40) units/L ALT (7-56) units/L Alkaline Phosphatase (35-129) units/L Total Protein (6.3-8.2) g/dL Albumin (3.9-5) g/dL Albumin/Globulin Ratio % Urine Color (Yellow) Urine Turbidity (Clear) Urine pH (5.0-7.0) Ur Specific [place] (1.003-1.030) Urine Protein (Negative) mg/dL Urine Glucose (UA) (Negative) mg/dL Urine Ketones (Negative) mg/dL Urine Blood (Negative) Urine Nitrite (Negative) Urine Bilirubin (Negative) Urine Urobilinogen (<2.0) mg/dL Ur Leukocyte Esterase (Negative) Urine WBC (Auto) (0.0-6.0) /HPF Urine RBC (Auto) (0.0-6.0) /HPF U Epithel Cells (Auto) (0-13.0) /HPF Urine Mucus /HPF Salicylates (2.8-20.0) mg/dL Urine Opiates Screen Presumptive negative Urine Methadone Screen Presumptive negative Acetaminophen (10.0-30.0) ug/mL Ur Barbiturates Screen Presumptive negative Ur Phencyclidine Scrn Presumptive negative Ur Amphetamines Screen Presumptive negative U Benzodiazepines Scrn Presumptive negative Urine Cocaine Screen Presumptive negative U Marijuana (THC) Screen Presumptive negative Drugs of Abuse Note Disclamer Vital Signs 06/06/21 06/06/21 06/07/21 21:45 23:48 03:26 Temperature 97.8 F 98.4 F Pulse Rate 90 85 Respiratory 18 18 18 Rate Blood Pressure 124/62 118/68 [Right] O2 Sat by Pulse 97 97 97 Oximetry 06/07/21 08:18 Temperature 98.4 F Pulse Rate 101 H Respiratory 18 Rate Blood Pressure 130/72 [Right] O2 Sat by Pulse 99 Oximetry
== END 2021-06-07 13:15 | disposition home or self-care (01) ==
LOC: ED 21:36
DX: R45.851 Suicidal ideations (principal); F17.200 Nicotine dependence, unspecified, uncomplicated
CPT/HCPCS: 36415; 80048; 80076; 80307; 80320; 81001; 85025; 99284; G0480

== ENCOUNTER 2021-08-17 16:31 | Emergency (ER) | payer MEDICARE ==
--- NOTE | 2021-08-17 21:07 | Emergency Department Report ---
ED General Adult HPI - General Chief complaint: Dizziness Stated complaint: DIZZY Source: patient, EMS Mode of arrival: Ambulatory Limitations: No Limitations - History of Present Illness Initial comments: Patient is a 26-year-old -[place] male with a history of schizoaffective disorder who presents to the ED with complaint of persistent lightheadedness and generalized weakness for the last 12 hours. Patient states that she has not been eating or drinking water in the last 12 hours and felt tired and weak. Patient however states that he continues to hear voices which is chronic due to his chronic schizoaffective disorder. Patient however denies suicidal or homicidal ideations. Patient denies dizziness, syncope, chest pain or shortness of breath, fever and chills, nausea and vomiting, cough, sore throat, nasal and sinus congestion or back pain and headache. MD Complaint: Lightheadedness, generalized weakness -: hour(s) (12) Location: head Radiation: non-radiation Severity scale (0 -10): 0 Consistency: intermittent Improves with: none Worsens with: none Associated Symptoms: denies other symptoms, weakness (Generalized), other ( Fatigue and lightheadedness). denies: confusion, chest pain, cough, diaphoresis, fever/chills, loss of appetite, malaise, nausea/vomiting, rash, seizure, shortness of breath, syncope Treatments Prior to Arrival: none - Related Data Home Medications Medication Instructions Recorded Confirmed Last Taken Benztropine Mesylate 1 mg PO BID 11/29/18 08/17/21 11/28/18 [place] Carbonate ER [Lithobid ER] 450 mg PO BID 11/29/18 08/17/21 11/28/18 Trazodone HCl 150 mg PO QHS 11/29/18 08/17/21 11/28/18 clonazePAM [Klonopin] 1 mg PO BID 11/29/18 08/17/21 11/28/18 cloZAPine [Clozapine] 100 mg PO BID 09/28/20 08/17/21 Unknown ARIPiprazole [Abilify Maintena] 400 mg IM 06/07/21 05/26/21 09:00 Divalproex ER [DepaKOTE ER] 250 mg PO BID 06/07/21 08/17/21 Unknown Divalproex ER [DepaKOTE ER] 500 mg PO HS 06/07/21 08/17/21 Unknown Melatonin [Melatonin 10MG CAP] 10 mg PO HS 06/07/21 08/17/21 Unknown Previous Rx's Medication Instructions Recorded Last Taken Type Cetirizine HCl [Zyrtec 10mg tab] 10 mg PO DAILY #20 tab 04/12/21 Unknown Rx Allergies Allergy/AdvReac Type Severity Reaction Status Date / Time No Known Allergies Allergy Verified 08/17/21 20:17 ED Review of Systems ROS: Stated complaint: DIZZY Other details as noted in HPI Constitutional: malaise, weakness. denies: chills, fever Eyes: denies: eye pain, eye discharge, vision change ENT: denies: ear pain, throat pain Respiratory: denies: cough, shortness of breath, wheezing Cardiovascular: other (Lightheadedness). denies: chest pain, palpitations, dyspnea on exertion, edema, syncope, paroxysmal nocturnal dyspnea Endocrine: no symptoms reported Gastrointestinal: denies: abdominal pain, nausea, vomiting, diarrhea Genitourinary: denies: urgency, dysuria Musculoskeletal: denies: back pain, joint swelling, arthralgia Skin: denies: rash, lesions Neurological: denies: headache, weakness, paresthesias Psychiatric: denies: anxiety, depression Hematological/Lymphatic: denies: easy bleeding, easy bruising ED Past Medical Hx - Past Medical History Hx Psychiatric Treatment: Yes (SCHIZOAFFECTIVE DISORDER) - Surgical History Additional Surgical History: UNKNOWN - Social History Smoking Status: Never Smoker Substance Use Type: None - Medications Home Medications: Home Medications Medication Instructions Recorded Confirmed Last Taken Type Benztropine Mesylate 1 mg PO BID 11/29/18 08/17/21 11/28/18 History [place] Carbonate ER [Lithobid ER] 450 mg PO BID 11/29/18 08/17/21 11/28/18 History Trazodone HCl 150 mg PO QHS 11/29/18 08/17/21 11/28/18 History clonazePAM [Klonopin] 1 mg PO BID 11/29/18 08/17/21 11/28/18 History cloZAPine [Clozapine] 100 mg PO BID 09/28/20 08/17/21 Unknown History Cetirizine HCl [Zyrtec 10mg tab] 10 mg PO DAILY #20 tab 04/12/21 08/17/21 Unknown Rx ARIPiprazole [Abilify Maintena] 400 mg IM 06/07/21 05/26/21 09:00 History Divalproex ER [DepaKOTE ER] 250 mg PO BID 06/07/21 08/17/21 Unknown History Divalproex ER [DepaKOTE ER] 500 mg PO HS 06/07/21 08/17/21 Unknown History Melatonin [Melatonin 10MG CAP] 10 mg PO HS 06/07/21 08/17/21 Unknown History ED Physical Exam - General Limitations: No Limitations General appearance: alert, in no apparent distress - Head Head exam: Present: atraumatic, normocephalic, normal inspection - Eye Eye exam: Present: normal appearance, PERRL, EOMI Pupils: Present: normal accommodation - ENT ENT exam: Present: normal exam, normal orophraynx, mucous membranes moist, TM's normal bilaterally, normal external ear exam - Neck Neck exam: Present: normal inspection, full ROM. Absent: tenderness - Respiratory Respiratory exam: Present: normal lung sounds bilaterally. Absent: respiratory distress, wheezes, rales, rhonchi, chest wall tenderness, decreased breath sounds - Cardiovascular Cardiovascular Exam: Present: normal rhythm, tachycardia, normal heart sounds. Absent: systolic murmur, diastolic murmur, rubs, gallop - GI/Abdominal GI/Abdominal exam: Present: soft, normal bowel sounds. Absent: tenderness, guarding, rebound, hyperactive bowel sounds - Extremities Exam Extremities exam: Present: normal inspection, full ROM, normal capillary refill. Absent: tenderness - Back Exam Back exam: Present: normal inspection, full ROM. Absent: tenderness, CVA tenderness (R), CVA tenderness (L), muscle spasm, paraspinal tenderness, vertebral tenderness - Neurological Exam Neurological exam: Present: alert, oriented X3, CN II-XII intact, normal gait, reflexes normal - Psychiatric Psychiatric exam: Present: normal mood, depressed, anxious, flat affect. Absent: homicidal ideation, suicidal ideation - Skin Skin exam: Present: warm, dry, intact, normal color. Absent: rash ED Course Vital Signs 08/17/21 08/17/21 16:41 20:15 Temperature 98.5 F 98.3 F Pulse Rate 110 H 65 Respiratory 18 20 Rate Blood Pressure 126/70 122/85 [Left] O2 Sat by Pulse 99 100 Oximetry ED Medical Decision Making - Medical Decision Making This is a 26-year-old -[place] male with a history of schizoaffective disorder who presents to the ED with complaint of persistent lightheadedness and generalized weakness for the last 12 hours. Patient states that she has not been eating or drinking water in the last 12 hours and felt tired and weak. Patient however states that he continues to hear voices which is chronic due to his chronic schizoaffective disorder. Patient however denies suicidal or ho micidal ideations. In the ED, patient is alert and oriented x3 and is not in any distress. Patient was fed in the ED and felt better. Vital signs are stable and patient will discharge home and advised to follow-up with his primary care physician in 5 to 7 days for reevaluation or return to the ED immediately if symptoms get worse. - Differential Diagnosis Anxiety; schizoaffective disorder; dehydration; Critical care attestation.: If time is entered above; I have spent that time in minutes in the direct care of this critically ill patient, excluding procedure time. ED Disposition Clinical Impression: Intermittent lightheadedness, Weakness generalized, Chronic schizoaffective disorder Disposition: 01 HOME / SELF CARE / HOMELESS Is pt being admited?: No Does the pt Need Aspirin: No Condition: Stable Instructions: Weakness, [id number], Schizoaffective Disorder Additional Instructions: Take your regular medications, drink plenty of fluids, follow-up with your psychiatrist as previously scheduled. Return to the ED immediately if symptoms get worse. Referrals: [facility] [Provider Group] - 7-10 days Time of Disposition: 21:10 Print Language: TURKMEN
[2021-08-17 21:48] VITALS: BP 121/78
--- NOTE | 2021-08-19 10:22 | Electrocardiograph Report ---
[facility] Test Date: 2021-08-17 Test Time: 20:03:34 Pat Name: DWAINE DUDLEY Department: Room: Gender: M [employer]: [id number] : 1995 Requested By: NAV ORNELAS Order Number: [id number] Reading MD: Anthony Ross Measurements Intervals [place] Rate: 69 P: 64 W[place]: 145 QRS: 49 QRSD: 93 T: 26 QT: 376 QTc: 405 Interpretive Statements Sinus rhythm ST elev, probable normal early repol pattern No previous ECG available for comparison Electronically Signed On 08-19-2021 10:22:08 EDT by Anthony Ross
== END 2021-08-17 21:42 | disposition home or self-care (01) ==
LOC: ED 16:31
DX: F25.9 Schizoaffective disorder, unspecified (principal); R53.1 Weakness; R42 Dizziness and giddiness
CPT/HCPCS: 93005; 99283

== ENCOUNTER 2021-09-14 11:35 | Emergency (ER) | payer MEDICARE ==
--- NOTE | 2021-09-14 12:46 | Emergency Department Report ---
HPI - General Chief Complaint: Psych Time Seen by Provider: 09/14/21 12:37 - HPI HPI: Room 5 Patient is a 26-year-old male present with chief complaint of auditory visual hallucinations. Patient has a history of s schizoaffective and bipolar disorder states he came to the emergency department because he has been hearing voices. When asked what the voices say the patient replies "they are just cussing at me." Patient also admits to visual hallucinations stating he sees "a girl that wants to talk to me." Patient denies suicidal homicidal ideation ED Past Medical Hx - Past Medical History Hx Psychiatric Treatment: Yes (SCHIZOAFFECTIVE DISORDER) - Surgical History Additional Surgical History: UNKNOWN - Family History Family history: no significant - Social History Smoking Status: Current Every Day Smoker (1/3 pack/day) Substance Use Type: None (Denies illicit drug use) - Medications Home Medications: Home Medications Medication Instructions Recorded Confirmed Last Taken Type Benztropine Mesylate 1 mg PO BID 11/29/18 08/17/21 11/28/18 History [place] Carbonate ER [Lithobid ER] 450 mg PO BID 11/29/18 08/17/21 11/28/18 History Trazodone HCl 150 mg PO QHS 11/29/18 08/17/21 11/28/18 History clonazePAM [Klonopin] 1 mg PO BID 11/29/18 08/17/21 11/28/18 History cloZAPine [Clozapine] 100 mg PO BID 09/28/20 08/17/21 Unknown History Cetirizine HCl [Zyrtec 10mg tab] 10 mg PO DAILY #20 tab 04/12/21 08/17/21 Unknown Rx ARIPiprazole [Abilify Maintena] 400 mg IM 06/07/21 05/26/21 09:00 History Divalproex ER [DepaKOTE ER] 250 mg PO BID 06/07/21 08/17/21 Unknown History Divalproex ER [DepaKOTE ER] 500 mg PO HS 06/07/21 08/17/21 Unknown History Melatonin [Melatonin 10MG CAP] 10 mg PO HS 06/07/21 08/17/21 Unknown History ED Review of Systems ROS: Stated complaint: HEARING VOICE Other details as noted in HPI Constitutional: no symptoms reported Eyes: denies: eye pain ENT: denies: throat pain Respiratory: no symptoms reported Cardiovascular: denies: chest pain Endocrine: no symptoms reported Gastrointestinal: denies: abdominal pain Genitourinary: denies: dysuria Musculoskeletal: denies: back pain Neurological: denies: headache Psychiatric: auditory hallucinations, visual hallucinations. denies: homicidal thoughts, suicidal thoughts Physical Exam - Physical Exam Physical Exam: GENERAL: The patient is well-developed well-nourished male lying on stretcher not appearing to be in acute distress. [] HEENT: Normocephalic. Atraumatic. Extraocular motions are intact. Patient has moist mucous membranes. NECK: Supple. Trachea midline CHEST/LUNGS: Clear to auscultation. There is no respiratory distress noted. HEART/CARDIOVASCULAR: Regular. There is no tachycardia. There is no gallop rub or murmur. ABDOMEN: Abdomen is soft, nontender. Patient has normal bowel sounds. There is no abdominal distention. SKIN: There is no rash. There is no edema. There is no diaphoresis. NEURO: The patient is awake, alert, and oriented. The patient is cooperative. The patient has no focal neurologic deficits. The patient has normal speech. GCS 15 MUSCULOSKELETAL: There is no evidence of acute injury. ED Medical Decision Making - Lab Data Result diagrams: 09/14/21 13:02 09/14/21 13:02 Laboratory Tests 09/14/21 09/14/21 09/14/21 13:02 13:02 13:02 WBC RBC Hgb Hct MCV MCH MCHC RDW Plt Count Lymph % (Auto) [place] % (Auto) Eos % (Auto) Baso % (Auto) Lymph # (Auto) [place] # (Auto) Eos # (Auto) Baso # (Auto) Seg Neutrophils % Seg Neutrophils # Sodium 139 Potassium 4.3 Chloride 103.2 Carbon Dioxide 28 Anion Gap 12 BUN 9 Creatinine 1.3 Estimated GFR > 60 BUN/Creatinine Ratio 7 Glucose 87 Calcium 9.6 Urine Color Urine Turbidity Urine pH Ur Specific [place] Urine Protein Urine Glucose (UA) Urine Ketones Urine Blood Urine Nitrite Urine Bilirubin Urine Urobilinogen Ur Leukocyte Esterase Urine WBC (Auto) Urine RBC (Auto) U Epithel Cells (Auto) Salicylates < 0.3 L Urine Opiates Screen Urine Methadone Screen Acetaminophen 5.0 L Ur Barbiturates Screen Valproic Acid 52.1 Ur Phencyclidine Scrn Ur Amphetamines Screen U Benzodiazepines Scrn [place] 0.6 Urine Cocaine Screen U Marijuana (THC) Screen Drugs of Abuse Note Plasma/Serum Alcohol 09/14/21 09/14/21 09/14/21 13:02 13:02 13:33 WBC 7.6 RBC 5.08 H Hgb 15.8 H Hct 48.3 H MCV 95 H MCH 31 MCHC 33 RDW 14.3 Plt Count 168 Lymph % (Auto) [employer]bel Consultant [place] % (Auto) Siebel Consultant Eos % (Auto) Siebel Consultant Baso % (Auto) Siebel Consultant Lymph # (Auto) Siebel Consultant [place] # (Auto) Siebel Consultant Eos # (Auto) Siebel Consultant Baso # (Auto) Siebel Consultant Seg Neutrophils % Siebel Consultant Seg Neutrophils # Siebel Consultant Sodium Potassium Chloride Carbon Dioxide Anion Gap BUN Creatinine Estimated GFR BUN/Creatinine Ratio Glucose Calcium Urine Color Urine Turbidity Urine pH Ur Specific [place] Urine Protein Urine Glucose (UA) Urine Ketones Urine Blood Urine Nitrite Urine Bilirubin Urine Urobilinogen Ur Leukocyte Esterase Urine WBC (Auto) Urine RBC (Auto) U Epithel Cells (Auto) Salicylates Urine Opiates Screen Negative Urine Methadone Screen Negative Acetaminophen Ur Barbiturates Screen Negative Valproic Acid Ur Phencyclidine Scrn Negative Ur Amphetamines Screen Negative U Benzodiazepines Scrn Negative [place] Urine Cocaine Screen Negative U Marijuana (THC) Screen Negative Drugs of Abuse Note Disclamer Plasma/Serum Alcohol < 0.01 09/14/21 Unknown WBC RBC Hgb Hct MCV MCH MCHC RDW Plt Count Lymph % (Auto) [place] % (Auto) Eos % (Auto) Baso % (Auto) Lymph # (Auto) [place] # (Auto) Eos # (Auto) Baso # (Auto) Seg Neutrophils % Seg Neutrophils # Sodium Potassium Chloride Carbon Dioxide Anion Gap BUN Creatinine Estimated GFR BUN/Creatinine Ratio Glucose Calcium Urine Color Yellow Urine Turbidity Clear Urine pH 7.0 Ur Specific [place] 1.017 Urine Protein <15 mg/dl Urine Glucose (UA) Neg Urine Ketones Neg Urine Blood Neg Urine Nitrite Neg Urine Bilirubin Neg Urine Urobilinogen 4.0 Ur Leukocyte Esterase Neg Urine WBC (Auto) 1.0 Urine RBC (Auto) 1.0 U Epithel Cells (Auto) < 1.0 Salicylates Urine Opiates Screen Urine Methadone Screen Acetaminophen Ur Barbiturates Screen Valproic Acid Ur Phencyclidine Scrn Ur Amphetamines Screen U Benzodiazepines Scrn [place] Urine Cocaine Screen U Marijuana (THC) Screen Drugs of Abuse Note Plasma/Serum Alcohol - Differential Diagnosis Schizoaffective disorder Critical care attestation.: If time is entered above; I have spent that time in minutes in the direct care of this critically ill patient, excluding procedure time. ED Disposition Clinical Impression: Schizoaffective disorder Disposition: 01 HOME / SELF CARE / HOMELESS Is pt being admited?: No Does the pt Need Aspirin: No Condition: Stable Instructions: Supporting Someone With Schizoaffective Disorder Additional Instructions: Return to the emergency department should you develop worsening symptoms, inability to tolerate food or liquids, high fever or any other concerns Referrals: [facility] [Outside] - 3-5 Days Time of Disposition: 14:58
[2021-09-14 13:33] LABS: BUN/Creatinine Ratio 7; Blood Urea Nitrogen 9 mg/dL (9-20); Calcium 9.6 mg/dL (8.4-10.2); Hemolysis Index 17
[2021-09-14 13:39] LABS: Hematocrit 48.3 % (35.5-45.6); Hemoglobin 15.8 gm/dl (11.8-15.2); Mean Corpuscular HGB Conc 33 % (32-34); Mean Corpuscular Volume 95 fl (84-94); Platelet Count 168 K/mm3 (140-440); Red Blood Count 5.08 M/mm3 (3.65-5.03); Red Cell Distribution Width 14.3 % (13.2-15.2)
[2021-09-14 14:16] LABS: Bilirubin,Urine NEG (Negative); Blood,Urine NEG (Negative); Color,Urine Yellow (Yellow); Protein,Urine <15 mg/dL mg/dL (Negative)
[2021-09-14 14:24] LABS: Amphetamine Screen,Urine Negative; Benzodiazepines Screen,Urine Negative; Cannabinoid Screen,Urine Negative; Cocaine Screen,Urine Negative; Methadone Screen,Urine Negative; Opiate Screen,Urine Negative
== END 2021-09-14 17:37 | disposition home or self-care (01) ==
LOC: ED 11:35
DX: F25.9 Schizoaffective disorder, unspecified (principal); F17.290 Nicotine dependence, other tobacco product, uncomplicated
CPT/HCPCS: 36415; 80048; 80164; 80178; 80307; 80320; 81001; 85025; 99284; G0480

== ENCOUNTER 2021-09-18 14:43 | Emergency (ER) | payer MEDICARE ==
[2021-09-18 14:47] VITALS: BP 109/79
--- NOTE | 2021-09-18 15:22 | Emergency Department Report ---
ED General Adult HPI - General Chief complaint: Psych Stated complaint: HEARING VOICES Time Seen by Provider: 09/18/21 15:07 Source: patient, EMS ( EMS documentation not available at time of chart dictation ), RN notes reviewed, old records reviewed Mode of arrival: Stretcher Limitations: No Limitations - History of Present Illness Initial comments: The patient was evaluated in the emergency department for symptoms described in the history of present illness. He/she was evaluated in the context of the global COVID-19 pandemic, which necessitated consideration that the patient might be at risk for infection with the virus that causes COVID-19. In stitutional protocols and algorithms that pertain to the evaluation of patients at risk for COVID-19 are in a state of rapid change based on information released by regulatory bodies including the CDC and federal and state organizations. These policies and algorithms were followed during the patient's care in the emergency department. Please note that these policies, procedures and recommendations changed on a rapid basis. This is a 26-year-old gentleman. He was recently seen in this department by our psychiatry team for chronic hallucinations. He represented today with a complaint of hallucinations which are painless. He did endorse a chronic scalp pain which has been present since 2014. He denies loss of vision, abdominal pain, chest pain, urinary symptoms and overdose. -: days(s), week(s) Consistency: constant Improves with: none Worsens with: none - Related Data Home Medications Medication Instructions Recorded Confirmed Last Taken Benztropine Mesylate 1 mg PO BID 11/29/18 09/18/21 11/28/18 [place] Carbonate ER [Lithobid ER] 450 mg PO BID 11/29/18 09/18/21 11/28/18 Trazodone HCl 150 mg PO QHS 11/29/18 09/18/21 11/28/18 clonazePAM [Klonopin] 1 mg PO BID 11/29/18 09/18/21 11/28/18 cloZAPine [Clozapine] 100 mg PO QHS 09/28/20 09/18/21 Unknown ARIPiprazole [Abilify Maintena] 400 mg IM QMONTH 06/07/21 09/18/21 09/16/21 400 MG Divalproex ER [DepaKOTE ER] 250 mg PO BID 06/07/21 09/18/21 Unknown Divalproex ER [DepaKOTE ER] 500 mg PO HS 06/07/21 09/18/21 Unknown Melatonin [Melatonin 10MG CAP] 10 mg PO HS 06/07/21 09/18/21 Unknown Previous Rx's Medication Instructions Recorded Last Taken Type Cetirizine HCl [Zyrtec 10mg tab] 10 mg PO DAILY #20 tab 04/12/21 Unknown Rx Allergies Allergy/AdvReac Type Severity Reaction Status Date / Time No Known Allergies Allergy Verified 09/14/21 11:48 ED Review of Systems ROS: Stated complaint: HEARING VOICES Other details as noted in HPI Constitutional: denies: fever Eyes: denies: vision change ENT: denies: epistaxis Respiratory: denies: cough Cardiovascular: denies: chest pain, palpitations Gastrointestinal: denies: abdominal pain Genitourinary: denies: dysuria Psychiatric: denies: homicidal thoughts, suicidal thoughts ED Past Medical Hx - Past Medical History Hx Psychiatric Treatment: Yes (SCHIZOAFFECTIVE DISORDER) - Surgical History Additional Surgical History: UNKNOWN - Social History Smoking Status: Current Every Day Smoker Substance Use Type: None - Medications Home Medications: Home Medications Medication Instructions Recorded Confirmed Last Taken Type Benztropine Mesylate 1 mg PO BID 11/29/18 09/18/21 11/28/18 History [place] Carbonate ER [Lithobid ER] 450 mg PO BID 11/29/18 09/18/21 11/28/18 History Trazodone HCl 150 mg PO QHS 11/29/18 09/18/21 11/28/18 History clonazePAM [Klonopin] 1 mg PO BID 11/29/18 09/18/21 11/28/18 History cloZAPine [Clozapine] 100 mg PO QHS 09/28/20 09/18/21 Unknown History Cetirizine HCl [Zyrtec 10mg tab] 10 mg PO DAILY #20 tab 04/12/21 09/18/21 Unknown Rx ARIPiprazole [Abilify Maintena] 400 mg IM QMONTH 06/07/21 09/18/21 09/16/21 History 400 MG Divalproex ER [DepaKOTE ER] 250 mg PO BID 06/07/21 09/18/21 Unknown History Divalproex ER [DepaKOTE ER] 500 mg PO HS 06/07/21 09/18/21 Unknown History Melatonin [Melatonin 10MG CAP] 10 mg PO HS 06/07/21 09/18/21 Unknown History ED Physical Exam - General Limitations: No Limitations General appearance: alert, in no apparent distress - Head Head exam: Present: atraumatic, normocephalic - Eye Eye exam: Present: normal appearance, EOMI. Absent: nystagmus - ENT ENT exam: Present: normal exam, normal orophraynx, mucous membranes moist, normal external ear exam - Neck Neck exam: Present: normal inspection, full ROM. Absent: tenderness, meningismus - Respiratory Respiratory exam: Present: normal lung sounds bilaterally. Absent: respiratory distress, wheezes, rales, rhonchi, stridor, decreased breath sounds - Cardiovascular Cardiovascular Exam: Present: regular rate, normal rhythm, normal heart sounds. Absent: bradycardia, tachycardia, irregular rhythm, systolic murmur, diastolic murmur, rubs, gallop - GI/Abdominal GI/Abdominal exam: Present: soft. Absent: distended, tenderness, guarding, rebound, rigid, pulsatile mass - Rectal Rectal exam: Present: deferred - Extremities Exam Extremities exam: Present: normal inspection, full ROM, other (2+ pulses noted in the bilateral upper and lower extremities. There is no palpable cord. negative Homans sign. Muscular compartments are soft. The pelvis is stable.). Absent: pedal edema, calf tenderness - Back Exam Back exam: Present: normal inspection. Absent: tenderness, CVA tenderness (R), CVA tenderness (L), paraspinal tenderness, vertebral tenderness - Neurological Exam Neurological exam: Present: alert, oriented X3, other (No facial droop. Tongue midline. Extraocular movements intact bilaterally. Facial sensation intact to light touch in V1, V2, V3 distribution bilaterally. 5 and a 5 strength in 4 extremities. Sensation intact to light touch in 4 extremities.). Absent: motor sensory deficit - Psychiatric Psychiatric exam: Present: flat affect. Absent: homicidal ideation, suicidal ideation - Skin Skin exam: Present: warm, dry, intact, normal color. Absent: rash ED Course Vital Signs 09/18/21 09/18/21 14:44 15:03 Temperature 98 F Pulse Rate 96 H Blood Pressure 109/79 [Left] O2 Sat by Pulse 98 98 Oximetry ED Medical Decision Making - Lab Data Result diagrams: 09/18/21 14:51 Vital Signs 09/18/21 09/18/21 14:44 15:03 Temperature 98 F Pulse Rate 96 H Blood Pressure 109/79 [Left] O2 Sat by Pulse 98 98 Oximetry Respiratory rate 12/min Lab Results 09/18/21 09/18/21 09/18/21 Range/Units 14:51 14:51 14:51 Sodium 139 (137-145) mmol/L Potassium 4.2 (3.6-5.0) mmol/L Chloride 104.6 (98-107) mmol/L Carbon Dioxide 26 (22-30) mmol/L Anion Gap 13 mmol/L BUN 10 (9-20) mg/dL Creatinine 1.1 (0.8-1.3) mg/dL Estimated GFR > 60 ml/min BUN/Creatinine Ratio 9 % Glucose 99 (75-100) mg/dL Calcium 9.4 (8.4-10.2) mg/dL Urine Color (Yellow) Urine Turbidity (Clear) Urine pH (5.0-7.0) Ur Specific [place] (1.003-1.030) Urine Protein (Negative) mg/dL Urine Glucose (UA) (Negative) mg/dL Urine Ketones (Negative) mg/dL Urine Blood (Negative) Urine Nitrite (Negative) Urine Bilirubin (Negative) Urine Urobilinogen (<2.0) mg/dL Ur Leukocyte Esterase (Negative) Urine WBC (Auto) (0.0-6.0) /HPF Urine RBC (Auto) (0.0-6.0) /HPF Urine Mucus /HPF Salicylates < 0.3 L (2.8-20.0) mg/dL Urine Opiates Screen Urine Methadone Screen Acetaminophen 5.0 L (10.0-30.0) ug/mL Ur Barbiturates Screen Valproic Acid (50-100) ug/mL Ur Phencyclidine Scrn Ur Amphetamines Screen U Benzodiazepines Scrn [place] (0.0-1.2) mmol/L Urine Cocaine Screen U Marijuana (THC) Screen Drugs of Abuse Note Plasma/Serum Alcohol (0-0.07) % 09/18/21 09/18/21 09/18/21 Range/Units 14:51 14:51 15:01 Sodium (137-145) mmol/L Potassium (3.6-5.0) mmol/L Chloride (98-107) mmol/L Carbon Dioxide (22-30) mmol/L Anion Gap mmol/L BUN (9-20) mg/dL Creatinine (0.8-1.3) mg/dL Estimated GFR ml/min BUN/Creatinine Ratio % Glucose (75-100) mg/dL Calcium (8.4-10.2) mg/dL Urine Color Yellow (Yellow) Urine Turbidity Clear (Clear) Urine pH 6.0 (5.0-7.0) Ur Specific [place] 1.021 (1.003-1.030) Urine Protein <15 mg/dl (Negative) mg/dL Urine Glucose (UA) Neg (Negative) mg/dL Urine Ketones Neg (Negative) mg/dL Urine Blood Neg (Negative) Urine Nitrite Neg (Negative) Urine Bilirubin Neg (Negative) Urine Urobilinogen 4.0 (<2.0) mg/dL Ur Leukocyte Esterase Neg (Negative) Urine WBC (Auto) 1.0 (0.0-6.0) /HPF Urine RBC (Auto) < 1.0 (0.0-6.0) /HPF Urine Mucus Few /HPF Salicylates (2.8-20.0) mg/dL Urine Opiates Screen Urine Methadone Screen Acetaminophen (10.0-30.0) ug/mL Ur Barbiturates Screen Valproic Acid 54.1 (50-100) ug/mL Ur Phencyclidine Scrn Ur Amphetamines Screen U Benzodiazepines Scrn [place] 0.3 (0.0-1.2) mmol/L Urine Cocaine Screen U Marijuana (THC) Screen Drugs of Abuse Note Plasma/Serum Alcohol < 0.01 (0-0.07) % 09/18/21 Range/Units 15:01 Sodium (137-145) mmol/L Potassium (3.6-5.0) mmol/L Chloride (98-107) mmol/L Carbon Dioxide (22-30) mmol/L Anion Gap mmol/L BUN (9-20) mg/dL Creatinine (0.8-1.3) mg/dL Estimated GFR ml/min BUN/Creatinine Ratio % Glucose (75-100) mg/dL Calcium (8.4-10.2) mg/dL Urine Color (Yellow) Urine Turbidity (Clear) Urine pH (5.0-7.0) Ur Specific [place] (1.003-1.030) Urine Protein (Negative) mg/dL Urine Glucose (UA) (Negative) mg/dL Urine Ketones (Negative) mg/dL Urine Blood (Negative) Urine Nitrite (Negative) Urine Bilirubin (Negative) Urine Urobilinogen (<2.0) mg/dL Ur Leukocyte Esterase (Negative) Urine WBC (Auto) (0.0-6.0) /HPF Urine RBC (Auto) (0.0-6.0) /HPF Urine Mucus /HPF Salicylates (2.8-20.0) mg/dL Urine Opiates Screen Negative Urine Methadone Screen Negative Acetaminophen (10.0-30.0) ug/mL Ur Barbiturates Screen Negative Valproic Acid (50-100) ug/mL Ur Phencyclidine Scrn Negative Ur Amphetamines Screen Negative U Benzodiazepines Scrn Negative [place] (0.0-1.2) mmol/L Urine Cocaine Screen Negative U Marijuana (THC) Screen Negative Drugs of Abuse Note Disclamer Plasma/Serum Alcohol (0-0.07) % - Medical Decision Making Differential diagnosis, including but not limited to: Chronic hallucinations, encounter for medical screening examination, encounter for behavioral health screening examination Assessment and plan: 26-year-old gentleman who is pleasant and cooperative, not homicidal, not suicidal, with a benign and unremarkable physical examination and chronic hallucinations. He was seen by the psychiatry team a few days ago for similar symptoms. He does not meet criteria for 1013 hold or involuntary confinement at this time. He can be given outpatient resources to follow-up. Return precautions are reviewed. Critical care attestation.: If time is entered above; I have spent that time in minutes in the direct care of this critically ill patient, excluding procedure time. ED Disposition Clinical Impression: Schizoaffective disorder, Encounter for behavioral health screening, Encounter for medical screening examination Disposition: 01 HOME / SELF CARE / HOMELESS Is pt being admited?: No Does the pt Need Aspirin: No Condition: Good Additional Instructions: Please follow-up with an outpatient mental health specialist within the next week. Avoid consumption of alcohol, tobacco, smoke products and recreational drugs. Please return to the emergency room right away with new pain, worsened pain, migration of pain, projectile vomiting, change in mental status, confusion, inability tolerate liquid feeds, new, worsened or different symptoms not present on the initial emergency room evaluation professional and Agency Contacts To help [facility] (16/10) [place] Crisis Line: Suicide Prevention Line: Crisis Text Line: Text ``START to 015258 Emergency: 911 Outpatient COMMUNITY Behavioral Health Resources: [facility]: [facility] [address], [place] [address] [place]: [facility] [address] [place] [address] Sunday thru Sunday - 8am - 5pm Call to schedule an assessment for mental health and substance abuse prog troy [facility] Address: [address] [place] [address] Sunday thru Sunday- 7am-2pm [facility] Address: [address] [place] [address] Sunday thrsunday: 8:30AM-5PM Referrals: [facility] [Outside] - 3-5 Days [facility] [Outside] - 3-5 Days
[2021-09-18 15:30] LABS: BUN/Creatinine Ratio 9; Blood Urea Nitrogen 10 mg/dL (9-20); Calcium 9.4 mg/dL (8.4-10.2); Hemolysis Index 13
[2021-09-18 15:41] LABS: Amphetamine Screen,Urine Negative; Benzodiazepines Screen,Urine Negative; Cannabinoid Screen,Urine Negative; Cocaine Screen,Urine Negative; Methadone Screen,Urine Negative; Opiate Screen,Urine Negative
[2021-09-18 16:05] LABS: Bilirubin,Urine NEG (Negative); Blood,Urine NEG (Negative); Color,Urine Yellow (Yellow); Protein,Urine <15 mg/dL mg/dL (Negative)
[2021-09-18 16:07] LABS: Mucus,Urine FEW /HPF; RBC,Urine < 1.0 /HPF (0.0-6.0)
== END 2021-09-18 17:43 | disposition home or self-care (01) ==
LOC: ED 14:43
DX: F25.9 Schizoaffective disorder, unspecified (principal); Z13.30 Encounter for screening examination for mental health and behavioral disorders, unspecified; F17.200 Nicotine dependence, unspecified, uncomplicated; Z79.899 Other long term (current) drug therapy
CPT/HCPCS: 36415; 80048; 80164; 80178; 80307; 80320; 81001; 99284; G0480

== ENCOUNTER 2021-10-09 13:03 | Emergency (ER) | payer MEDICARE ==
[2021-10-09 14:06] VITALS: BP 104/51
[2021-10-09 14:11] LABS: Bilirubin,Urine NEG (Negative); Blood,Urine NEG (Negative); Color,Urine Yellow (Yellow); Protein,Urine <15 mg/dL mg/dL (Negative)
[2021-10-09 14:18] LABS: Amphetamine Screen,Urine Negative; Benzodiazepines Screen,Urine Negative; Cannabinoid Screen,Urine Negative; Cocaine Screen,Urine Negative; Methadone Screen,Urine Negative; Opiate Screen,Urine Negative
--- NOTE | 2021-10-09 16:01 | Emergency Department Report ---
ED General Adult HPI - General Chief complaint: Psych Stated complaint: HEARING VOICES PUI?: No Time Seen by Provider: 10/09/21 13:23 Source: patient, EMS Mode of arrival: Stretcher Limitations: No Limitations - History of Present Illness Initial comments: This is a 26-year-old male came in today with concern of auditory hallucination. According patient he denies suicidal homicidal ideation. Patient said that he is not taking his medications. Patient denies any other symptoms denies fever chill night sweat dizziness blurred vision lightheadedness headache tinnitus ear pain runny nose sore throat loss of taste loss smell chest pain palpitation short of breath cough abdominal pain nausea vomiting diarrhea constipation joint pain muscle pain new rash and heat or cold intolerance. Severity scale (0 -10): 0 - Related Data Home Medications Medication Instructions Recorded Confirmed Last Taken Benztropine Mesylate 1 mg PO BID 11/29/18 09/18/21 11/28/18 [place] Carbonate ER [Lithobid ER] 450 mg PO BID 11/29/18 09/18/21 11/28/18 Trazodone HCl 150 mg PO QHS 11/29/18 09/18/21 11/28/18 clonazePAM [Klonopin] 1 mg PO BID 11/29/18 09/18/21 11/28/18 cloZAPine [Clozapine] 100 mg PO QHS 09/28/20 09/18/21 Unknown ARIPiprazole [Abilify Maintena] 400 mg IM QMONTH 06/07/21 09/18/21 09/16/21 400 MG Divalproex ER [DepaKOTE ER] 250 mg PO BID 06/07/21 09/18/21 Unknown Divalproex ER [DepaKOTE ER] 500 mg PO HS 06/07/21 09/18/21 Unknown Melatonin [Melatonin 10MG CAP] 10 mg PO HS 06/07/21 09/18/21 Unknown Previous Rx's Medication Instructions Recorded Last Taken Type Cetirizine HCl [Zyrtec 10mg tab] 10 mg PO DAILY #20 tab 04/12/21 Unknown Rx Allergies Allergy/AdvReac Type Severity Reaction Status Date / Time No Known Allergies Allergy Verified 10/09/21 13:06 ED Review of Systems ROS: Stated complaint: HEARING VOICES Other details as noted in HPI Comment: All other systems reviewed and negative Constitutional: no symptoms reported Eyes: as per HPI ENT: as per HPI Respiratory: no symptoms reported Cardiovascular: as per HPI Endocrine: no symptoms reported, see HPI Gastrointestinal: as per HPI Genitourinary: as per HPI Musculoskeletal: as per HPI Skin: as per HPI Neurological: as per HPI Psychiatric: auditory hallucinations. denies: anxiety, depression, visual hallucinations, homicidal thoughts, suicidal thoughts Hematological/Lymphatic: as per HPI ED Past Medical Hx - Past Medical History Previous Medical History?: Yes Hx Psychiatric Treatment: Yes (SCHIZOAFFECTIVE DISORDER) - Surgical History Additional Surgical History: UNKNOWN - Social History Smoking Status: Current Every Day Smoker Substance Use Type: None - Medications Home Medications: Home Medications Medication Instructions Recorded Confirmed Last Taken Type Benztropine Mesylate 1 mg PO BID 11/29/18 09/18/21 11/28/18 History [place] Carbonate ER [Lithobid ER] 450 mg PO BID 11/29/18 09/18/21 11/28/18 History Trazodone HCl 150 mg PO QHS 11/29/18 09/18/21 11/28/18 History clonazePAM [Klonopin] 1 mg PO BID 11/29/18 09/18/21 11/28/18 History cloZAPine [Clozapine] 100 mg PO QHS 09/28/20 09/18/21 Unknown History Cetirizine HCl [Zyrtec 10mg tab] 10 mg PO DAILY #20 tab 04/12/21 09/18/21 Unknown Rx ARIPiprazole [Abilify Maintena] 400 mg IM QMONTH 06/07/21 09/18/21 09/16/21 History 400 MG Divalproex ER [DepaKOTE ER] 250 mg PO BID 06/07/21 09/18/21 Unknown History Divalproex ER [DepaKOTE ER] 500 mg PO HS 06/07/21 09/18/21 Unknown History Melatonin [Melatonin 10MG CAP] 10 mg PO HS 06/07/21 09/18/21 Unknown History ED Physical Exam - General Limitations: No Limitations General appearance: alert, in no apparent distress - Head Head exam: Present: atraumatic, normocephalic, normal inspection - Eye Eye exam: Present: normal appearance, PERRL, EOMI Pupils: Present: normal accommodation - ENT ENT exam: Present: normal exam, mucous membranes moist - Neck Neck exam: Present: normal inspection, full ROM - Respiratory Respiratory exam: Present: normal lung sounds bilaterally - Cardiovascular Cardiovascular Exam: Present: regular rate, normal rhythm, normal heart sounds - GI/Abdominal GI/Abdominal exam: Present: soft - Extremities Exam Extremities exam: Present: normal inspection, full ROM, normal capillary refill - Back Exam Back exam: Present: normal inspection, full ROM - Neurological Exam Neurological exam: Present: alert, oriented X3, CN II-XII intact - Psychiatric Psychiatric exam: Present: normal affect, normal mood - Skin Skin exam: Present: warm, normal color ED Course Vital Signs 10/09/21 10/09/21 14:05 14:17 Temperature 97.4 F L Pulse Rate 80 Respiratory 18 Rate Blood Pressure 104/51 [Left] O2 Sat by Pulse 96 98 Oximetry - Reevaluation(s) Reevaluation #1: 10/09/21 17:48 PATIENT DENIES SI/HI. PER MENTAL HEALTH EVALUATION; PATIENT DOES HAVE BASELINE HALLUCINATION AND NO INPATIENT CRITERIA. WILL DISCHARGE PATIENT. PATIENT INFORMED TO RETURN TO ER IF ANY NEW SYMPTOMS OR CURRENT SYMPTOM WORSEN. ED Medical Decision Making - Lab Data Result diagrams: 10/09/21 16:09 10/09/21 16:09 Critical Care Time: No Critical care attestation.: If time is entered above; I have spent that time in minutes in the direct care of this critically ill patient, excluding procedure time. ED Disposition Clinical Impression: Auditory hallucinations Disposition: 01 HOME / SELF CARE / HOMELESS Is pt being admited?: No Does the pt Need Aspirin: No Condition: Stable Additional Instructions: Make a follow-up appointment with your primary care provider to be seen within the 3 to 5 days. Return to the ER if you have any suicidal homicidal ideation. Referrals: PRIMARY CARE [Primary Care Provider] - 3-5 Days Time of Disposition: 17:47
[2021-10-09 16:28] LABS: Basophils % (Auto) 0.5 % (0.0-1.8); Eosinophils # (Auto) 0.2 K/mm3 (0.0-0.4); Eosinophils % (Auto) 1.7 % (0.0-4.3); Hematocrit 46.4 % (35.5-45.6); Hemoglobin 14.8 gm/dl (11.8-15.2); Mean Corpuscular HGB Conc 32 % (32-34); Mean Corpuscular Volume 96 fl (84-94); Monocytes # (Auto) 0.8 K/mm3 (0.0-0.8); Platelet Count 168 K/mm3 (140-440); Red Blood Count 4.82 M/mm3 (3.65-5.03); Red Cell Distribution Width 14.2 % (13.2-15.2)
[2021-10-09 16:41] LABS: Alanine Aminotransferase 23 units/L (7-56); Albumin 4.2 g/dL (3.9-5); BUN/Creatinine Ratio 9; Blood Urea Nitrogen 11 mg/dL (9-20); Calcium 9.5 mg/dL (8.4-10.2); Hemolysis Index 9
== END 2021-10-09 18:16 | disposition home or self-care (01) ==
LOC: ED 13:03
DX: R44.0 Auditory hallucinations (principal); Z20.822 Contact with and (suspected) exposure to COVID-19; F17.200 Nicotine dependence, unspecified, uncomplicated
CPT/HCPCS: 36415; 80053; 80307; 81001; 85025; 99284; U0003